=== PATIENT | female | born 1985 | race Caucasian/White ===

== ENCOUNTER → 2020-12-29 14:55 | Outpatient (BNVA) | payer OTHER, SELFPAY | PROVIDERS: PCP Internal Medicine; Visit Provider Internal Medicine Pulmonary Disease | DX: R91.8 Other nonspecific abnormal finding of lung field (principal) | CPT/HCPCS: 99212 ==

== ENCOUNTER → 2021-01-12 13:54 | Outpatient (BNVA) | payer OTHER, SELFPAY | PROVIDERS: PCP Internal Medicine; Visit Provider Nurse Practitioner ==

== ENCOUNTER 2021-01-14 13:53 | Outpatient (REF) | payer OTHER, SELFPAY ==
--- NOTE | ~2021-01-14 | CT_ITS ---
EXAMINATION: CT CHEST WITHOUT CONTRAST CLINICAL INFORMATION: Follow up pulmonary nodules. COMPARISON: CT chest 11/05/2019. TECHNIQUE: Multidetector volumetric CT imaging of the chest was done. Axial MIP volume rendering provided. Sagittal and coronal reformatted images were obtained. This CT examination was performed using dose optimization techniques as appropriate, variously including the following: *Automated exposure control *Adjustment of mA and/or kV according to patient size (this includes techniques or standardized protocols for targeted exams where dose is matched to indication/reason for exam; i.e. extremities or head) *Use of iterative reconstruction technique DLP: 217 mGy-cm FINDINGS: CLERICAL WAREHOUSEMAN: Unremarkable. LUNGS: The lungs are well expanded and clear of acute pneumonic process. There is a 5 mm cavitary thick-walled lesion in the left lower lobe subpleural location axial image 323/4, stable. No additional lesion seen. There is no bronchiectasis or peribronchial wall thickening. MEDIASTINUM: The thyroid lobes are symmetrical and normal. The central trachea and the bronchi are widely patent. Heart size and the great vessels are normal caliber. No abnormal-sized mediastinal lymph nodes or mass seen. There is no pericardial effusion. PLEURA: There is no pleural effusion. No pleural mass or thickening. AXILLA: There are small shotty axillary lymph nodes. The chest wall is unremarkable. Visualized liver, spleen, pancreas and bilateral adrenal glands are unremarkable. UPPER ABDOMEN: Visualized liver, spleen, pancreas and bilateral adrenal glands are unremarkable. OSSEOUS STRUCTURES: No bony abnormality seen. CT/CT chest wo con IMPRESSION: Stable 5 mm cavitary lesion left lower lobe. No new lesion seen. No abnormal mediastinal lymphadenopathy.
== END 2021-01-14 13:54 | disposition home or self-care (01) ==
LOC: HO.CT 13:53
PROVIDERS: PCP Internal Medicine; Visit Provider Internal Medicine Pulmonary Disease
DX: R91.8 Other nonspecific abnormal finding of lung field (principal)
CPT/HCPCS: 71250

== ENCOUNTER → 2021-01-21 14:57 | Outpatient (BNVA) | payer OTHER, SELFPAY | PROVIDERS: PCP Internal Medicine; Visit Provider Internal Medicine Pulmonary Disease | DX: G47.33 Obstructive sleep apnea (adult) (pediatric) (principal) | CPT/HCPCS: 99212 ==

== ENCOUNTER → 2021-01-28 09:21 | Outpatient (BNVA) | payer OTHER, SELFPAY | PROVIDERS: PCP Internal Medicine; Visit Provider Nurse Practitioner ==

== ENCOUNTER → 2021-02-11 12:39 | Outpatient (BNVA) | payer OTHER, SELFPAY | PROVIDERS: Visit Provider Nurse Practitioner ==

== ENCOUNTER 2021-04-05 11:12 | Outpatient (REF) | payer OTHER, SELFPAY | END 2021-04-05 11:13 | disposition home or self-care (01) | LOC: HO.LAB 11:12 | PROVIDERS: Visit Provider Nurse Practitioner Family | DX: N30.00 Acute cystitis without hematuria (principal) | CPT/HCPCS: 87086; 87088; 87186 ==

== ENCOUNTER → 2021-05-12 11:27 | Outpatient (BNVA) | payer OTHER, SELFPAY | PROVIDERS: PCP Internal Medicine; Visit Provider Anesthesiology | DX: M46.1 Sacroiliitis, not elsewhere classified (principal); M47.816 Spondylosis without myelopathy or radiculopathy, lumbar region; G89.4 Chronic pain syndrome | CPT/HCPCS: 99212 ==

== ENCOUNTER → 2021-07-06 10:47 | Outpatient (BNVA) | payer OTHER, MEDICAID, SELFPAY | PROVIDERS: PCP Internal Medicine; Visit Provider Obstetrics & Gynecology | DX: Z30.9 Encounter for contraceptive management, unspecified (principal) | CPT/HCPCS: 99212 ==

== ENCOUNTER → 2021-09-20 10:58 | Outpatient (BNVA) | payer OTHER, MEDICAID, SELFPAY | PROVIDERS: PCP Internal Medicine; Referring Provider Internal Medicine; Visit Provider Psychiatry & Neurology Neurology | DX: G47.10 Hypersomnia, unspecified (principal); G47.419 Narcolepsy without cataplexy | CPT/HCPCS: 99202 ==

== ENCOUNTER 2021-09-28 15:02 | Outpatient (REF) | payer OTHER, MEDICAID, SELFPAY ==
[2021-09-28 16:40] LABS: MANUAL DIFF FLAG NO
[2021-09-28 16:42] LABS: Basophils Percent Auto 0.4 % (0-2); Eosinophils Absolute Auto 0.1 X10*3/uL (0.0-0.4); Eosinophils Percent Auto 0.7 % (0-4); Hematocrit 38.7 % (37.0-47.0); Hemoglobin 12.7 g/dl (12.0-16.0); Imm Gran Abs Auto 0.02 X10*3/uL (0.00-0.03); Imm Gran Pct Auto 0.3 % (0.0-0.4); Lymphocytes Absolute Auto 2.2 X10*3/uL (1.2-4.9); Lymphocytes Percent Auto 31.3 % (20-40); Mean Corpuscular HGB Conc 32.8 g/dl (31.0-35.0); Mean Corpuscular Hemoglobin 27.5 pg (27.0-33.0); Mean Corpuscular Volume 83.9 fL (80.0-98.0); Mean Platelet Volume 10.4 fL (9.4-12.3); Monocytes Absolute Auto 0.4 X10*3/uL (0.1-1.2); Monocytes Percent Auto 5.2 % (2-11); Neutrophils Absolute Auto 4.4 x10*3/uL (2.0-8.3); Neutrophils Percent Auto 62.1 % (45-73); Platelet Count 334 X10*3/uL (160-400); Red Blood Count 4.61 X10*6/uL (4.20-5.50); Red Cell Distribution Width 12.5 % (11.0-16.0); White Blood Count 7.1 X10*3/uL (4.8-10.8)
[2021-09-28 17:28] LABS: Alanine Aminotransferase 26 U/L (0-31); Albumin Level 4.3 g/dL (3.5-5.0); Alkaline Phosphatase 66 U/L (39-117); Anion Gap 13 (12-20); Aspartate Amino Transferase 22 U/L (5-31); Bilirubin Total 0.4 mg/dL (0.0-1.0); Blood Urea Nitrogen 6 mg/dL (9-16); Calcium 9.3 mg/dL (8.4-10.2); Carbon Dioxide 30 mmol/L (22-29); Chloride 99 mmol/L (96-108); Estimated Glomerular Filt Rate > 60; Glucose Random 84 mg/dL (60-115); Sodium 138 mmol/L (135-145)
[2021-09-28 17:29] LABS: Amphetamine Screen Urine Not Detected (Not Detect); Barbiturates, Urine Not Detected (Not Detect); Benzodiazepines Screen Urine Not Detected (Not Detect); Cannabinoid Screen Urine Not Detected (Not Detect); Cocaine Screen Urine Not Detected (Not Detect); Fentanyl, urine Not Detected (Not Detect); Opiate Screen Urine Not Detected (Not Detect); Phencyclidine Screen Urine Not Detected (Not Detect)
[2021-09-28 17:49] LABS: TSH reflex Free T4 0.96 uIU/mL (0.32-4.0)
[2021-10-04 15:26] LABS: Vitamin D 25-OH, D2 4 ng/mL; Vitamin D 25-OH, D3 14 ng/mL; Vitamin D 25-OH, Total 18 ng/mL (30-100)
== END 2021-09-28 15:03 | disposition home or self-care (01) ==
LOC: HO.HMGCLDS 15:02
PROVIDERS: PCP Internal Medicine; Visit Provider Psychiatry & Neurology Neurology
DX: G47.10 Hypersomnia, unspecified (principal); G47.419 Narcolepsy without cataplexy
CPT/HCPCS: 80053; 80307; 82306; 84443; 85025

== ENCOUNTER → 2021-10-06 09:16 | Outpatient (BNVA) | payer OTHER, MEDICAID, SELFPAY | PROVIDERS: PCP Internal Medicine; Visit Provider Obstetrics & Gynecology | DX: Z01.419 Encounter for gynecological examination (general) (routine) without abnormal findings (principal); N91.2 Amenorrhea, unspecified | CPT/HCPCS: 99212 ==

== ENCOUNTER 2021-11-09 13:53 | Outpatient (REF) | payer OTHER, MEDICAID, SELFPAY ==
--- NOTE | ~2021-11-09 | US_ITS ---
EXAMINATION: US PELVIS TRANSVAGINAL CLINICAL INFORMATION: Amenorrhea COMPARISON: June 09, 2019 TECHNIQUE: Transcutaneous and transvaginal pelvic ultrasound. Transvaginal scanning was performed after voiding to better evaluate the endometrium and adnexa. FINDINGS: The uterus measures 8.4 x 3.4 x 5.3 cm. The uterus is anteverted. There are numerous nabothian cysts present The uterine contour is smooth. The endometrium measures 0.8 cm. No endometrial mass is identified. There is an 8 x 4 x 6 mm hypoechoic region within the myometrium of the anterior uterus most likely representing small fibroid. The right ovary measures approximately 3.3 x 2.2 x 3.1 cm. The calculated right ovarian volume is approximately 11.8 mL. There are numerous follicular cysts present. No suspicious masses seen. There is normal vascular flow present. The left ovary measures 2.7 x 1.2 x 2.6 cm. The calculated left ovarian volume is approximately 4.4 mL. No abnormal left adnexal findings. No significant free pelvic fluid. US/US pelvic and transvaginal IMPRESSION: Subcentimeter hypoechoic lesion within the myometrium likely representing a fibroid. Numerous nabothian cyst. Numerous right ovarian follicular cyst.
== END 2021-11-09 13:54 | disposition home or self-care (01) ==
LOC: HO.US 13:53
PROVIDERS: Visit Provider Obstetrics & Gynecology
DX: N91.2 Amenorrhea, unspecified (principal)
CPT/HCPCS: 76830; 76856

== ENCOUNTER 2021-11-16 13:52 | Outpatient (REF) | payer OTHER, MEDICAID, SELFPAY ==
[2021-11-16 17:06] LABS: HCG Quantitative < 2 mIU/mL; TSH reflex Free T4 0.68 uIU/mL (0.32-4.0)
[2021-11-17 21:37] LABS: Follicle Stimulating Hormone 3.9 mIU/mL; Lutenizing Hormone 4.4 mIU/mL; Prolactin 2.5 ng/mL
[2021-11-17 23:06] LABS: DHEA Sulfate 63 mcg/dL (23-266)
[2021-11-20 16:22] LABS: Testosterone, Free 0.8 pg/mL (0.1-6.4); Testosterone, Total 9 ng/dL (2-45)
== END 2021-11-16 13:53 | disposition home or self-care (01) ==
LOC: HO.HMGCLDS 13:52
PROVIDERS: PCP Internal Medicine; Visit Provider Obstetrics & Gynecology
DX: N91.2 Amenorrhea, unspecified (principal)
CPT/HCPCS: 36415; 82627; 83001; 83002; 83498; 84146; 84402; 84403; 84443; 84702

== ENCOUNTER → 2021-11-17 14:57 | Outpatient (BNVA) | payer OTHER, MEDICAID, SELFPAY | PROVIDERS: PCP Internal Medicine; Visit Provider Nurse Practitioner Family | DX: G47.10 Hypersomnia, unspecified (principal) | CPT/HCPCS: 99212 ==

== ENCOUNTER → 2021-11-28 14:45 | Outpatient (BNVA) | payer OTHER, MEDICAID, SELFPAY | PROVIDERS: Visit Provider Nurse Practitioner Family ==

== ENCOUNTER 2021-12-08 08:47 | Outpatient (REF) | payer OTHER, MEDICAID, SELFPAY | END 2021-12-08 08:48 | disposition home or self-care (01) | LOC: HO.LAB 08:47 | PROVIDERS: Visit Provider Obstetrics & Gynecology | DX: N91.2 Amenorrhea, unspecified (principal) | CPT/HCPCS: 58100; 88305 ==

== ENCOUNTER → 2021-12-22 11:45 | Outpatient (BNVA) | payer OTHER, MEDICAID, SELFPAY | PROVIDERS: Visit Provider Obstetrics & Gynecology ==

== ENCOUNTER 2022-01-06 15:10 | Emergency (ER) | payer OTHER, MEDICAID, SELFPAY ==
--- NOTE | ~2022-01-06 | XR_ITS ---
EXAMINATION: THORACIC, LUMBAR SPINE AND CHEST. CLINICAL INFORMATION: Fall. COMPARISON: Chest x-ray 04/14/2019. TECHNIQUE: Lumbar spine 3 views. Dorsal spine 2 views. Chest one view. FINDINGS: Dorsal spine: There is normal thoracic kyphosis. The vertebral heights, alignment and disc heights are normal. There is no visible acute fracture, dislocation or subluxation seen. No lytic or sclerotic process seen. The paravertebral soft tissues are normal. Lumbar spine: There is normal lumbar lordosis. The vertebral heights, alignment and disc heights are normal. No visible acute fracture, dislocation or lytic process seen. The paravertebral soft tissues are normal. There is moderate constipation. CHEST: The lungs are well-expanded and clear of acute process. The heart size and pulmonary vascularity is normal. No gross bony abnormality seen.. XR/XR lumbar spine 2-3V IMPRESSION: Unremarkable dorsal and lumbar spine exam. Unremarkable chest exam.
--- NOTE | ~2022-01-06 | XR_ITS ---
EXAMINATION: THORACIC, LUMBAR SPINE AND CHEST. CLINICAL INFORMATION: Fall. COMPARISON: Chest x-ray 04/14/2019. TECHNIQUE: Lumbar spine 3 views. Dorsal spine 2 views. Chest one view. FINDINGS: Dorsal spine: There is normal thoracic kyphosis. The vertebral heights, alignment and disc heights are normal. There is no visible acute fracture, dislocation or subluxation seen. No lytic or sclerotic process seen. The paravertebral soft tissues are normal. Lumbar spine: There is normal lumbar lordosis. The vertebral heights, alignment and disc heights are normal. No visible acute fracture, dislocation or lytic process seen. The paravertebral soft tissues are normal. There is moderate constipation. CHEST: The lungs are well-expanded and clear of acute process. The heart size and pulmonary vascularity is normal. No gross bony abnormality seen.. XR/XR chest 1V IMPRESSION: Unremarkable dorsal and lumbar spine exam. Unremarkable chest exam.
--- NOTE | ~2022-01-06 | XR_ITS ---
EXAMINATION: THORACIC, LUMBAR SPINE AND CHEST. CLINICAL INFORMATION: Fall. COMPARISON: Chest x-ray 04/14/2019. TECHNIQUE: Lumbar spine 3 views. Dorsal spine 2 views. Chest one view. FINDINGS: Dorsal spine: There is normal thoracic kyphosis. The vertebral heights, alignment and disc heights are normal. There is no visible acute fracture, dislocation or subluxation seen. No lytic or sclerotic process seen. The paravertebral soft tissues are normal. Lumbar spine: There is normal lumbar lordosis. The vertebral heights, alignment and disc heights are normal. No visible acute fracture, dislocation or lytic process seen. The paravertebral soft tissues are normal. There is moderate constipation. CHEST: The lungs are well-expanded and clear of acute process. The heart size and pulmonary vascularity is normal. No gross bony abnormality seen.. XR/XR thoracic spine 3V IMPRESSION: Unremarkable dorsal and lumbar spine exam. Unremarkable chest exam.
[2022-01-06 15:15] VITALS: BP 148/92; PULSE 92; RESP 16; TEMP 36.9; O2SAT 98; BMI 24.7
[2022-01-06] MEDS: oxyCODONE HCl Immed Release 5 MG TABLET PO (16:33)
--- NOTE | 2022-01-06 16:33 | ED.BACK ---
HPI - Back Pain/Injury General Chief Complaint: Back Pain/Injury Stated Complaint: fall,back pain Time Seen by Provider: 01/06/22 15:42 History of Present Illness HPI Narrative: Patient complains of both upper and lower back pain after slipping on the bottom 3 steps and hitting her back on to the edge of the steps this afternoon She denies any headache or head injury denies any neck pain she has no numbness weakness or tingling no radiation of the pain no extremity injuries Related Data Home Medications Medication Instructions Recorded Confirmed sertraline 100 mg tablet 150 mg PO DAILY tab 11/28/21 Previous Rx's Medication Instructions Recorded hyoscyamine sulfate 0.125 mg 0.125 mg PO BID 30 Days #60 tab 04/26/21 disintegrating tablet cholecalciferol (vitamin D3) 1,250 1,250 mcg PO QWEEK 98 Days #14 cap 10/28/21 mcg (50,000 unit) capsule modafinil 200 mg tablet (Provigil) See Rx Instructions PO DAILY #60 11/17/21 tab ondansetron 8 mg disintegrating 8 mg PO Q12H 30 Days #60 tab 12/09/21 tablet pregabalin 150 mg capsule 150 mg PO BID 30 Days #60 cap 12/12/21 methylphenidate HCl 10 mg biphasic 10 mg PO QAM #30 cap 01/03/22 50-50 capsule,extended release (Ritalin LA) lorazepam 0.5 mg tablet (Ativan) 0.5 mg PO TID PRN #7 tab 01/06/22 oxycodone 5 mg tablet 5 mg PO Q6H PRN #10 tab 01/06/22 Allergies Allergy/AdvReac Type Severity Reaction Status Date / Time No Known Allergies Allergy Verified 11/17/21 15:14 [No Known Allergies*] Review of Systems Review of Systems: Positive for back pain after fall Negatives are no dizziness no weakness no fainting no feeling faint no headache no confusion no neck pain no numbness weakness or tingling no chest pain no shortness of breath no abdominal pain no incontinence no dysuria no extremity pains no laceration Yes all other systems are reviewed and are negative PMFSH Past Medical History Source: nursing notes reviewed Medical History Anxiety and depression Arthropathy of lumbar facet joint ASCUS of cervix with negative high risk HPV Chronic pain syndrome Fibromyalgia Hemorrhoids Lumbar degenerative disc disease Overweight (BMI 25.0-29.9) Sacroiliitis Surgical History Hx of colonoscopy Family History Family History Maternal Grandfather Lung cancer Mother Aortic aneurysm Fibroids Maternal Grandmother Asthma Social History Social History Housing: Apartment Alcohol intake: never Patient Tobacco Use Status: Former Tobacco user Second Hand Smoke Exposure: Yes Advance Directives: No Advance Directives Information Provided: No Patient : No service: No Current occupational status: employed 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 Physical Exam Vital Signs: Vital Signs: Last Vital Signs Temp 98.4 F 01/06/22 15:15 Pulse 92 01/06/22 15:15 Resp 16 01/06/22 15:15 BP 148/92 H 01/06/22 15:15 Pulse Ox 98 01/06/22 15:15 BMI result Body Mass Index 24.7 General appearance no acute distress Head is normocephalic atraumatic Neck is supple nontender The chest is clear to auscultation bilateral with no chest wall tenderness no rib tenderness The abdomen is soft and nontender The back had both lower and thoracic tenderness including midline and soft tissues, there was no ecchymosis no deformity, skin was normal in appearance and pain was easily reproduced with movement Extremities was full range of motion x4 Gait and balance were normal Interaction both verbal expression and comprehension were normal, motor was 5/5 x4 and sensation was intact and symmetrical Course Course Course Narrative: X-rays were negative of lumbar spine thoracic spine and a chest x-ray was done as well because it hurt to take a deep breath She felt better after analgesics and was ambulating safely and easily and was discharged Discharge Plan Discharge Clinical Impression: Contusion of back, Back strain Patient Disposition: Home, Self-Care Additional Instructions: X-rays did not show any broken bones in your upper or lower back The pain is likely bruising and strain of muscles in the back Follow with your doctors Return any time any worse condition or any concerns Use Tylenol and Motrin for pain but if it is not sufficient you can use the oxycodone as needed Prescriptions: New oxycodone 5 mg tablet 5 mg PO Q6H PRN (Reason: pain) Qty: 10 0RF Rx Instructions: Narcotic, no driving for 6 hours after taking lorazepam [Ativan] 0.5 mg tablet 0.5 mg PO TID PRN (Reason: Back spasm) Qty: 7 0RF No Action hyoscyamine sulfate 0.125 mg tablet,disintegrating 0.125 mg PO BID 30 Days Qty: 60 0RF Hold Instructions: Doctor's Order cholecalciferol (vitamin D3) 1,250 mcg (50,000 unit) capsule 1,250 mcg PO QWEEK 98 Days Qty: 14 0RF ondansetron 8 mg tablet,disintegrating 8 mg PO Q12H 30 Days Qty: 60 3RF pregabalin 150 mg capsule 150 mg PO BID 30 Days Qty: 60 1RF methylphenidate HCl [Ritalin LA] 10 mg capsule,ER biphasic 50-50 10 mg PO QAM Qty: 30 0RF sertraline 100 mg tablet 150 mg PO DAILY 0RF modafinil [Provigil] 200 mg tablet See Rx Instructions PO DAILY Qty: 60 1RF Rx Instructions: 1 tab qam and 1 tab q noon
[2022-01-06] MEDS: LORazepam 1 MG TABLET PO (16:34)
[2022-01-06] MEDS: Ketorolac Tromethamine 30 MG/ML VIAL IM (16:34)
== END 2022-01-06 16:59 | disposition home or self-care (01) ==
PROVIDERS: Emergency Provider Emergency Medicine; PCP Internal Medicine
DX: S30.0XXA Contusion of lower back and pelvis, initial encounter (principal); S20.229A Contusion of unspecified back wall of thorax, initial encounter; S39.012A Strain of muscle, fascia and tendon of lower back, initial encounter; S29.012A Strain of muscle and tendon of back wall of thorax, initial encounter; W10.8XXA Fall (on) (from) other stairs and steps, initial encounter; Y93.89 Activity, other specified; Y92.9 Unspecified place or not applicable; Y99.9 Unspecified external cause status
CPT/HCPCS: 71045; 72072; 72100; 96372; 99283; 99284; J1885

== ENCOUNTER → 2022-01-12 10:54 | Outpatient (BNVA) | payer OTHER, SELFPAY | PROVIDERS: PCP Internal Medicine; Visit Provider Nurse Practitioner Family | DX: K58.2 Mixed irritable bowel syndrome (principal); R11.2 Nausea with vomiting, unspecified; R10.33 Periumbilical pain; G47.10 Hypersomnia, unspecified; M54.50 Low back pain, unspecified; Z79.899 Other long term (current) drug therapy | CPT/HCPCS: 99212 ==

== ENCOUNTER 2022-01-17 13:18 | Outpatient (REF) | payer OTHER, SELFPAY ==
[2022-01-17 16:29] LABS: MANUAL DIFF FLAG NO
[2022-01-17 16:34] LABS: Basophils Percent Auto 0.5 % (0-2); Eosinophils Absolute Auto 0.3 X10*3/uL (0.0-0.4); Eosinophils Percent Auto 4.6 % (0-4); Hematocrit 38.6 % (37.0-47.0); Hemoglobin 12.4 g/dl (12.0-16.0); Imm Gran Abs Auto 0.01 X10*3/uL (0.00-0.03); Imm Gran Pct Auto 0.2 % (0.0-0.4); Lymphocytes Absolute Auto 2.5 X10*3/uL (1.2-4.9); Lymphocytes Percent Auto 45.2 % (20-40); Mean Corpuscular HGB Conc 32.1 g/dl (31.0-35.0); Mean Corpuscular Hemoglobin 27.6 pg (27.0-33.0); Mean Corpuscular Volume 85.8 fL (80.0-98.0); Mean Platelet Volume 10.1 fL (9.4-12.3); Monocytes Absolute Auto 0.4 X10*3/uL (0.1-1.2); Monocytes Percent Auto 6.2 % (2-11); Neutrophils Absolute Auto 2.4 x10*3/uL (2.0-8.3); Neutrophils Percent Auto 43.3 % (45-73); Platelet Count 341 X10*3/uL (160-400); Red Cell Distribution Width 13.6 % (11.0-16.0); White Blood Count 5.6 X10*3/uL (4.8-10.8)
[2022-01-17 16:45] LABS: Alanine Aminotransferase 18 U/L (0-31); Albumin Level 4.4 g/dL (3.5-5.0); Alkaline Phosphatase 52 U/L (39-117); Anion Gap 13 (12-20); Aspartate Amino Transferase 17 U/L (5-31); Bilirubin Total 0.3 mg/dL (0.0-1.0); Blood Urea Nitrogen 13 mg/dL (9-16); C Reactive Protein 0.37 mg/dL (< or = 0.50); Calcium 10.2 mg/dL (8.4-10.2); Carbon Dioxide 28 mmol/L (22-29); Chloride 102 mmol/L (96-108); Estimated Glomerular Filt Rate > 60; Glucose Random 93 mg/dL (60-115); Potassium 4.4 mmol/L (3.3-5.1); Rheumatoid Factor < 15.0 IU/mL (<15.0); Sodium 139 mmol/L (135-145); Total Protein 7.3 g/dL (6.5-8.0)
[2022-01-17 16:47] LABS: Appearance Urine HAZY; Color Urine YELLOW; Glucose Urine UA NEG (NEG); Leukocyte Esterase Urine NEG (NEG); Nitrite Urine NEG (NEG); PH 5.5 (5.0-8.0); Specific Gravity - Urine >= 1.030 (1.005-1.025); UACC Culture Trigger NO; Urine Blood 1+ (NEG); Urine Ketones NEG (NEG); Urine Protein NEG (NEG-TRACE)
[2022-01-17 17:08] LABS: TSH reflex Free T4 1.04 uIU/mL (0.32-4.0)
[2022-01-17 17:11] LABS: Erythrocyte Sedimentation Rate 7 MM/HR (0-20)
[2022-01-17 17:17] LABS: Folate 4.8 ng/mL (> or = 4.0); Vitamin B12 1595 pg/mL (200-900)
[2022-01-17 17:44] LABS: RBC Urine 0-2 /HPF (0); Squamous Epithelial Cell Urine 2+ /LPF; WBC Urine 0-2 /HPF (0-4)
[2022-01-19 21:17] LABS: Transglutaminase Ab IgG <1.0 U/mL; Transglutaminase IgA <1.0 U/mL
[2022-01-20 14:56] LABS: Anti Nuclear Antibody Screen NEGATIVE (NEGATIVE)
== END 2022-01-17 13:19 | disposition home or self-care (01) ==
LOC: HO.HMGCLDS 13:18
PROVIDERS: Absent Provider Nurse Practitioner; PCP Internal Medicine; Visit Provider Internal Medicine
DX: R10.33 Periumbilical pain (principal); R11.2 Nausea with vomiting, unspecified; G89.4 Chronic pain syndrome; M79.7 Fibromyalgia; R53.83 Other fatigue; E53.8 Deficiency of other specified B group vitamins; K58.2 Mixed irritable bowel syndrome; M25.50 Pain in unspecified joint
CPT/HCPCS: 36415; 80053; 81001; 81003; 82607; 82746; 84443; 85025; 85652; 86003; 86038; 86039; 86140; 86364; 86431

== ENCOUNTER → 2022-02-17 11:52 | Outpatient (BNVA) | payer OTHER, SELFPAY | PROVIDERS: PCP Internal Medicine; Referring Provider Internal Medicine; Visit Provider Nurse Practitioner | DX: K58.2 Mixed irritable bowel syndrome (principal); K64.9 Unspecified hemorrhoids; K59.04 Chronic idiopathic constipation; R10.30 Lower abdominal pain, unspecified; R11.2 Nausea with vomiting, unspecified | CPT/HCPCS: 99212 ==

== ENCOUNTER → 2022-03-23 12:06 | Outpatient (BNVA) | payer OTHER, SELFPAY | PROVIDERS: PCP Internal Medicine; Visit Provider Nurse Practitioner | DX: K59.04 Chronic idiopathic constipation (principal); R10.33 Periumbilical pain; K58.2 Mixed irritable bowel syndrome | CPT/HCPCS: 99212 ==

== ENCOUNTER 2022-04-20 12:28 | Outpatient (REF) | payer OTHER, SELFPAY ==
--- NOTE | ~2022-04-20 | CT_ITS ---
EXAMINATION: CT ABDOMEN AND PELVIS WITHOUT CONTRAST CLINICAL INFORMATION: Mixed irritable bowel syndrome. COMPARISON: None. TECHNIQUE: Multidetector volumetric imaging was performed from the superior aspect of the liver through the pubic symphysis. Sagittal and coronal reformatted images were obtained on the technologist's workstation. This CT examination was performed using dose optimization techniques as appropriate, variously including the following: *Automated exposure control *Adjustment of mA and/or kV according to patient size (this includes techniques or standardized protocols for targeted exams where dose is matched to indication/reason for exam; i.e. extremities or head) *Use of iterative reconstruction technique DLP: 477 mGy-cm FINDINGS: LUNG BASES: The visualized lung bases are unremarkable. LIVER, GALLBLADDER, AND BILIARY TREE: The liver is normal in size, shape, and attenuation. No focal hepatic lesion or biliary ductal dilatation is present. The gallbladder is contracted with no radiopaque calculi, wall thickening or pericholecystic fluid collection. PANCREAS: Unremarkable. SPLEEN: Unremarkable. ADRENAL GLANDS: Unremarkable. KIDNEYS AND URETERS: The kidneys are normal in size, shape, and attenuation. No hydronephrosis, hydroureter, or calculi seen. No perinephric stranding. BLADDER: Unremarkable. GASTROINTESTINAL TRACT: There is a large amount of stool seen throughout the colon without distention. There is contrast opacifying normal caliber small bowel loops and colon. No free air, free fluid or inflammatory process is seen. ABDOMINAL WALL: No significant hernia is appreciated. LYMPH NODES: Normal. VASCULAR: Unremarkable. PELVIC VISCERA: There is no free air or free fluid. The uterus is anteverted and appears unremarkable. OSSEOUS STRUCTURES: Unremarkable. CT/CT abdomen pelvis wo con IMPRESSION: Significant constipation without obstruction. No mural thickening, abnormal lymph nodes. Fleischner guidelines were followed.
[2022-04-20] MEDS: Barium Sulfate Oral (Vanilla) 450 ML ORAL.SUSP 900 ML PO (14:46)
== END 2022-04-20 12:29 | disposition home or self-care (01) ==
LOC: HO.CT 12:28
PROVIDERS: Visit Provider Nurse Practitioner
DX: K58.2 Mixed irritable bowel syndrome (principal); R11.2 Nausea with vomiting, unspecified; R10.33 Periumbilical pain
CPT/HCPCS: 74176

== ENCOUNTER → 2022-05-04 12:40 | Outpatient (BNVA) | payer OTHER, SELFPAY | PROVIDERS: PCP Internal Medicine; Visit Provider Nurse Practitioner | DX: K59.04 Chronic idiopathic constipation (principal); R10.33 Periumbilical pain; Z79.899 Other long term (current) drug therapy | CPT/HCPCS: 99212 ==

== ENCOUNTER 2022-08-02 15:22 | Outpatient (REF) | payer OTHER, SELFPAY ==
[2022-08-08 16:26] LABS: Vitamin D 25-OH, D2 <4 ng/mL; Vitamin D 25-OH, D3 38 ng/mL; Vitamin D 25-OH, Total 38 ng/mL (30-100)
== END 2022-08-02 15:23 | disposition home or self-care (01) ==
LOC: HO.HMGCLDS 15:22
PROVIDERS: PCP Internal Medicine; Visit Provider Nurse Practitioner Family
DX: E55.9 Vitamin D deficiency, unspecified (principal)
CPT/HCPCS: 36415; 82306

== ENCOUNTER → 2022-09-13 11:08 | Outpatient (BNVA) | payer OTHER, SELFPAY | PROVIDERS: Visit Provider Obstetrics & Gynecology | DX: Z51.81 Encounter for therapeutic drug level monitoring (principal); F11.20 Opioid dependence, uncomplicated; E28.2 Polycystic ovarian syndrome | CPT/HCPCS: 99212 ==

== ENCOUNTER → 2022-10-04 13:47 | Outpatient (BNVA) | payer OTHER, SELFPAY | PROVIDERS: Visit Provider Nurse Practitioner Family | DX: G47.419 Narcolepsy without cataplexy (principal) ==

== ENCOUNTER 2023-02-01 15:42 | Outpatient (REF) | payer OTHER, SELFPAY ==
[2023-02-09 03:38] LABS: HPV 16 RNA NOT DETECTED (NOT DETECTED); HPV mRNA E6/E7 rflx Detected (Not Detected)
== END 2023-02-01 15:43 | disposition home or self-care (01) ==
LOC: HO.LNP 15:42
PROVIDERS: PCP Internal Medicine; Visit Provider Obstetrics & Gynecology
DX: Z01.419 Encounter for gynecological examination (general) (routine) without abnormal findings (principal); Z11.51 Encounter for screening for human papillomavirus (HPV)
CPT/HCPCS: 87624; 87625; 88142

== ENCOUNTER → 2023-02-09 08:57 | Outpatient (BNVA) | payer OTHER, SELFPAY | PROVIDERS: PCP Internal Medicine; Visit Provider Obstetrics & Gynecology | DX: Z30.42 Encounter for surveillance of injectable contraceptive (principal) | CPT/HCPCS: 96372; 99211 ==

== ENCOUNTER → 2023-03-30 10:57 | Outpatient (BNVA) | payer OTHER, SELFPAY | PROVIDERS: PCP Internal Medicine; Visit Provider Nurse Practitioner Family | DX: G47.419 Narcolepsy without cataplexy (principal); G47.10 Hypersomnia, unspecified; M79.7 Fibromyalgia; U07.0 Vaping-related disorder | CPT/HCPCS: 99212 ==

== ENCOUNTER 2023-10-23 14:44 | Outpatient (AMB) | payer OTHER, SELFPAY ==
--- NOTE | 2023-10-23 14:49 | A.OFFVIS_ITS ---
Intake Vital Signs 10/23/23 14:50 Height 5 ft 2 in Weight 158 lb BMI 28.9 BP 110/68 Blood Pressure Location Lt brachial Position Sitting Pulse 62 Pulse Source Pulse Oximeter Pulse Oximetry (%) 100 Oxygen Delivery Method Room Air Intake Visit Reasons: 6m f/u Follow [id number] to conf busy tone Allergies No Known Allergies [No Known Allergies*] Allergy (Verified 10/23/23 14:53) Medication List - Last Reconciled 10/23/23 by Alize Vargas CNP aripiprazole 5 mg PO DAILY bupropion HCl 150 mg PO DAILY bupropion HCl 300 mg PO DAILY cholecalciferol (vitamin D3) (Vitamin D3) 25 mcg PO DAILY 90 days dextroamphetamine-amphetamine 20 mg (Adderall) 30 mg (1.5 x 20 mg) PO DAILY 30 days dextroamphetamine-amphetamine 30 mg ER (Adderall XR) 30 mg PO QAM 30 days loratadine (Claritin) 10 mg PO DAILY PRN 90 days metformin 1,000 mg PO DAILY minocycline 100 mg PO BID ondansetron 8 mg PO Q12H PRN tretinoin 0.025% appl topical HPI HPI Comments History of Present Illness Details 38 y/o female patient presents for follo w up of narcolepsy and hypersomnia. Pt reports she sleeps better at night from 9 pm to 4:30 am. She stopped using lyrica. 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 She works 7 am-1 pm on weekdays, 9 am-1 pm on Weekends and 1 pm to 10 pm on Wednesdays. She does not have problem working those days, but struggles to stay awake on Sunday between 4-5 pm due to long evening schedule. It is difficulty for her to work until 4 pm and then to drive 30 min to go home. [facility] Medical History Vitamin D deficiency Migraine Narcolepsy ASCUS of cervix with negative high risk HPV Chronic pain syndrome Arthropathy of lumbar facet joint Sacroiliitis Hemorrhoids Overweight (BMI 25.0-29.9) Anxiety and depression Fibromyalgia Lumbar degenerative disc disease Surgical History History of excision of lesion (~11/02/18) History of esophagogastroduodenoscopy (EGD) Hx of colonoscopy Family History Maternal Grandfather Lung cancer Mother Aortic aneurysm Fibroids Maternal Grandmother Asthma Social History Housing: Apartment Alcohol intake: never Patient Tobacco Use Status: Former Tobacco user e-Cigarette/Vaping Use: Currently Using Second Hand Smoke Exposure: Yes service: No Current occupational status: employed 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 Cognitive needs: No Hearing needs: No Vision needs: Yes Female Reproductive History Menstrual Age of Menarche: 14 Review of Systems Const All systems reviewed & are unremarkable except as noted in HPI and below ENT Reports Normal hearing present Neuro Reports Normal hearing present Physical Exam Vital Signs: Last Vital Signs Pulse 62 10/23/23 14:50 BP 110/68 10/23/23 14:50 Pulse Ox 100 10/23/23 14:50 Oxygen Delivery Method Room Air 10/23/23 14:50 BMI result Body Mass Index 28.9 Const General: cooperative Nutritional Appearance: overweight Orientation/consciousness: patient oriented x3 Resp Effort & Inspection: normal respiratory effort and able to speak in complete sentences Neuro General: patient oriented x3, gait normal and moves all extremities Cranial nerves: Yes Bilaterally intact EOM present, Yes Normal facial strength present, Yes Midline tongue present, Yes Symmetric palate elevation present, Yes Normal hearing present, Yes Ability to bilaterally rotate head present and Yes Ability to bilaterally elevate shoulders present Cognition (Neuro): normal cognition Gait exam (Neuro): Normal gait present Motor exam (neuro): 5/5 motor strength present throughout and Pronator motor function not present Psych Appearance: grossly normal Mental Status: mental status grossly normal Speech and movement: Normal speech and movement present Affect: normal affect Assessment & Plan Assessment & Plan (1) Narcolepsy without cataplexy: Code(s): G47.419 - Narcolepsy without cataplexy (2) Hypersomnia: Code(s): G47.10 - Hypersomnia, unspecified Plan Continue to take Adderall XR 30 mg q 4:30 am. Advised patient to try Wakix 17.8 mg daily at 6-7 am. And then she can take Adderall 20 mg at 1-2 pm. Advised patient to have baseline EKG before start Wakix to monitor HR. Orders: Orders ECG 12 lead EKG Today G47.419 - Narcolepsy without cataplexy Medications: New pitolisant (Wakix) Start after finish 8.9 mg. 17.8 mg PO DAILY 23 days 23 tabs 0RF pitolisant (Wakix) 8.9 mg (2 x 4.45 mg) PO DAILY 7 days 14 tabs 0RF pitolisant (Wakix) Start after titrating up to 17.8 mg 17.8 mg PO DAILY 30 days 30 tabs 1RF Coding Level of Care Code Est Pt Level 4 (41271) Diagnoses Narcolepsy without cataplexy G47.419 Hypersomnia G47.10
[2023-10-23 14:50] VITALS: BP 110/68; PULSE 62; O2SAT 100; BMI 28.9
== END 2023-10-23 15:37 | disposition home or self-care (01) ==
PROVIDERS: PCP Internal Medicine; Visit Provider Nurse Practitioner Family
DX: G47.419 Narcolepsy without cataplexy (principal); G47.10 Hypersomnia, unspecified
CPT/HCPCS: 99214

== ENCOUNTER → 2023-10-23 14:44 | Outpatient (BNVA) | payer OTHER, SELFPAY | PROVIDERS: PCP Internal Medicine; Visit Provider Nurse Practitioner Family | DX: G47.419 Narcolepsy without cataplexy (principal); G47.10 Hypersomnia, unspecified | CPT/HCPCS: 99212 ==

== ENCOUNTER 2024-03-14 09:56 | Outpatient (AMB) | payer OTHER, SELFPAY ==
--- NOTE | 2024-03-14 09:57 | MHC.OFFVIS ---
Vital Signs 03/14/24 10:01 Height 5 ft 2 in Weight 150 lb BMI 27.4 BP 122/98 H Blood Pressure Location Rt brachial Position Sitting Pulse 106 H Pulse Source Pulse Oximeter Pulse Oximetry (%) 99 Oxygen Delivery Method Room Air Intake Visit Reasons: 2M follow up-LVM Intake Note: Patient presents for 2 month follow up. Patient feels tired all the time takes frequent naps. Allergies No Known Allergies [No Known Allergies*] Allergy (Verified 03/14/24 10:12) Medication List - Last Reconciled 03/14/24 by DARREN Franco aripiprazole 5 mg PO DAILY bupropion HCl XL 150 mg PO DAILY bupropion HCl XL 300 mg PO DAILY cholecalciferol (vitamin D3) (Vitamin D3) 25 mcg PO DAILY 90 days dextroamphetamine-amphetamine 30 mg ER (Adderall XR) 30 mg PO QAM 30 days loratadine (Claritin) 10 mg PO DAILY PRN 90 days metformin 1,000 mg PO DAILY minocycline 100 mg PO BID ondansetron 8 mg PO Q12H PRN solriamfetol (Sunosi) 150 mg PO DAILY 30 days tretinoin 0.025% appl topical HPI Comments Details: 38-yr-old female presents for f/u visit for narcolepsy tx. Pt denies any significant interval medical changes. Wakes up at 4:30am to arrive to work for 7am. 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 She takes the Sunosi 150mg and Bupropion XL 450mg, Aripiprazole 5mg between 4:30-5am. She finishes work at either 12pm or 4pm. On short work days- takes a nap if she can. Then takes the Adderall XR 30mg- as late as she can, as she struggles the most in the afternoon and evening. The Sunosi and Adderall do not last a full 8 hrs. With this regimen, she is still prone to sleep attacks when inactive. She is prone to head dropping forward at start of sleep attack. She has vivid dreams- often being chased by something. Sometimes wakes up stressed from the dream. Denies h/o sleep paralysis. Today, pt recalls, that prior to starting any narcolepsy medication- she did have an episode where when talking with her mother- her head slumped and she dropped her drink. [facility] Medical History Vitamin D deficiency Migraine Narcolepsy ASCUS of cervix with negative high risk HPV Chronic pain syndrome Arthropathy of lumbar facet joint Sacroiliitis Hemorrhoids Overweight (BMI 25.0-29.9) Anxiety and depression Fibromyalgia Lumbar degenerative disc disease Surgical History History of excision of lesion (~11/02/18) History of esophagogastroduodenoscopy (EGD) Hx of colonoscopy Family History Maternal Grandfather Lung cancer Mother Aortic aneurysm Fibroids Maternal Grandmother Asthma Social History Housing: Apartment Alcohol intake: never Patient Tobacco Use Status: Former Tobacco user e-Cigarette/Vaping Use: Currently Using Second Hand Smoke Exposure: Yes service: No Current occupational status: employed 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 Cognitive needs: No Hearing needs: No Vision needs: Yes Female Reproductive History Menstrual Age of Menarche: 14 Physical Exam Vital Signs: Last Vital Signs Pulse 106 H 03/14/24 10:01 BP 122/98 H 03/14/24 10:01 Pulse Ox 99 03/14/24 10:01 Oxygen Delivery Method Room Air 03/14/24 10:01 BMI result Body Mass Index 27.4 Const General: cooperative and no acute distress Orientation/consciousness: patient oriented x3 Resp Effort & Inspection: normal respiratory effort and able to speak in complete sentences Neuro General: patient oriented x3 Cranial nerves: Yes CN's II-XII intact bilaterally Cognition (Neuro): normal cognition Psych Appearance: grossly normal Mental Status: mental status grossly normal Speech and movement: Normal speech and movement present Affect: normal affect Attitude: cooperative Assessment & Plan Assessment & Plan (1) Narcolepsy without cataplexy: Comment: 2021- Positive MSLT w/ short sleep onet naps and 2 SOREMs. Possible cataplexy- ? episode w/ pt's mother of sudden weakness was ctaplexy. Code(s): G47.419 - Narcolepsy without cataplexy Category: Medical (2) Hypersomnia: Code(s): G47.10 - Hypersomnia, unspecified Category: Medical Plan Pt advised to start Lumryz 4.5 Gm qhs, as pt continues to have excessive daytime sleepiness, sleep attacks on Sunosi and Adderall. Reviewed instructions for use- including to not take it until she is actually in bed, to keep the medication in a locked box, to avoid taking Lumryz w/ alcohol or other sedating agents. Lumryz enrollment form signed by pt. In the meantime, continue: Sunosi 150mg qam. Adderall ER 30mg qd. May add Adderall 10mg IR tab- 102 tabs per day for breakthrough sleepiness/sleep attacks. Pt to monitor for episodes of sudden weakness- pt did not clearly understand what cataplexy s/s were when she previously denied having cataplexy s/s. Information shared on sleep and narcolepsy education resources. Follow-up 4 weeks after starting Lumryz- (appt maybe made on a sun at 4pm). Medications: New dextroamphetamine-amphetamine 10 mg (Adderall) administer doses at least 4-6 hours apart; Partial Fill upon patient request. 10 mg PO BID 30 days PRN 60 tabs 0RF sleep attack G47.419 - Narcolepsy without cataplexy Lumryz ER (sodium oxybate) 4.5 grams PO BEDTIME 30 days 30 ea 0RF narcolepsy NS G47.419 - Narcolepsy without cataplexy Coding Level of Care Code Est Pt Level 4 (33514) Diagnoses Narcolepsy without cataplexy G47.419 Hypersomnia G47.10
[2024-03-14 10:01] VITALS: BP 122/98; PULSE 106; O2SAT 99; BMI 27.4
== END 2024-03-14 11:55 | disposition home or self-care (01) ==
PROVIDERS: PCP Internal Medicine; Visit Provider Nurse Practitioner Family
DX: G47.419 Narcolepsy without cataplexy (principal); G47.10 Hypersomnia, unspecified
CPT/HCPCS: 99214

== ENCOUNTER → 2024-03-14 09:56 | Outpatient (BNVA) | payer OTHER, SELFPAY | PROVIDERS: PCP Internal Medicine; Visit Provider Nurse Practitioner Family | DX: G47.419 Narcolepsy without cataplexy (principal); G47.10 Hypersomnia, unspecified | CPT/HCPCS: 99212 ==

== ENCOUNTER 2024-03-21 12:44 | Outpatient (AMB) | payer OTHER, SELFPAY ==
[2024-03-21 12:54] VITALS: BP 122/70; PULSE 92; O2SAT 98; BMI 27.6
--- NOTE | 2024-03-21 12:54 | A.OFFPC_ITS ---
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: Not Required per policy Accompanied by: Self / Same As Patient Allergies No Known Allergies [No Known Allergies*] Allergy (Verified 03/21/24 13:31) Medication List - Last Reconciled 03/21/24 by Jackson Auguste MD aripiprazole 5 mg PO DAILY bupropion HCl XL 150 mg PO DAILY bupropion HCl XL 300 mg PO DAILY cholecalciferol (vitamin D3) (Vitamin D3) 25 mcg PO DAILY 90 days dextroamphetamine-amphetamine 10 mg (Adderall) 10 mg PO BID PRN 30 days dextroamphetamine-amphetamine 30 mg ER (Adderall XR) 30 mg PO QAM 30 days loratadine (Claritin) 10 mg PO DAILY PRN 90 days Lumryz ER (sodium oxybate) 4.5 grams PO BEDTIME 30 days NS metformin 1,000 mg PO DAILY minocycline 100 mg PO DAILY ondansetron 8 mg PO Q12H PRN solriamfetol (Sunosi) 150 mg PO DAILY 30 days spironolactone 50 mg PO BID tretinoin 0.025% appl topical Tobacco use date assessed: 03/21/24 Dental Screening Dental Screen Date: 03/21/24 Did you have a dental visit in the last 12 months?: Yes Did you have a dental problem in the last 6 months where you did not have access to dental care?: No Was dental information given to patient?: Patient has dentist HPI PE HPI Details Patient comes in today for her annual physical examination States that she feels okay She denies any headaches or dizziness Denies any chest pains, no SOB No nausea/vomiting, no abdominal pain No change in bowel habits noted She denies any acute urinary symptoms Patient is currently still on Sunosi and Adderall for her narcolepsy and this is being managed and treated by neurology She was supposedly recently switched to Lumryz as even with her current Rx, she still feels fatigued often and remains prone to sleep attacks, but patient states that this is still awaiting approval by her insurance company Patient states that she is up-to-date with her annual gynecology exam and pap smear [facility] Medical History (Updated 03/23/24 @ 21:57 by Jackson Auguste MD) Acne vulgaris Vitamin D deficiency Migraine Narcolepsy ASCUS of cervix with negative high risk HPV Chronic pain syndrome Arthropathy of lumbar facet joint Sacroiliitis Hemorrhoids Overweight (BMI 25.0-29.9) Anxiety and depression Fibromyalgia Lumbar degenerative disc disease Surgical History History of excision of lesion (~11/02/18) History of esophagogastroduodenoscopy (EGD) Hx of colonoscopy Family History Maternal Grandfather Lung cancer Mother Aortic aneurysm Fibroids Maternal Grandmother Asthma Social History Housing: Apartment Alcohol intake: never Patient Tobacco Use Status: Former Tobacco user e-Cigarette/Vaping Use: Currently Using Second Hand Smoke Exposure: Yes service: No Current occupational status: employed 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 1. Little interest or pleasure in doing things: several days 2. Feeling down, depressed, or hopeless: several days 3. Trouble falling or staying asleep, or sleeping too much: several days 4. Feeling tired or having little energy: several days 5. Poor appetite or overeating: several days 6. Feeling bad about yourself - or that you are a failure or have let yourself or your family down: several days 7. Trouble concentrating on things, such as reading the newspaper or watching television: several days 8. Moving or speaking so slowly that other people could have noticed. Or the opposite - being so fidgety or restless that you have been moving around a lot more than usual: several days 9. Thoughts that you would be better off or of hurting yourself in some way: not at all Total score: 8 Depression Screening Interpretation: Positive Depression Screening Follow-up: Existing condition and In treatment Depression Screening Done: Yes 24234 - PHQ-9 Billing: Yes Source: Developed by Drs. Walker Mccurdy, Miguel Sharma and colleagues, with an educational viktoriya from [employer]. Thrive Questionnaire Date Thrive assessed: 03/21/24 I am a: Patient What is your living situation today?: I have a steady place to live Within the past 12 months, did the food you bought not last and you didn't have the money to get more?: Never true Within the past 12 months, did you worry whether your food would run out before you got money to buy more?: Never true Do you have trouble paying for medicines?: No Do you have trouble getting transportation to medical appointments?: No Do you have trouble paying your heating and electricity bill?: No Do you have trouble taking care of your child, family member or friend?: No Do you have trouble with day-to-day activities such as bathing, preparing meals, shopping, managing finances, etc.?: No Are you currently unemployed and looking for a job?: No Are you interested in more education?: No Please select the resources that you would like help with: None Currently or been in a relationship where the following occur: no concerns reported THRIVE Score: 0 AUDIT C Alcohol Use Questionnaire (AUDIT-C) 1. How often do you have a drink containing alcohol?: Never 3. How often do you have six or more drinks on one occasion?: Never Total Score: 0 Score Reviewed/Action Taken: Yes KENYETTA-7 AMB Questionnaire KENYETTA-7 Date KENYETTA - 7 assessed: 03/21/24 Feeling nervous, anxious, or on edge: 0 = Not at all Not being able to stop or control worryin = Not at all Worrying too much about different things: 0 = Not at all Trouble relaxin = Not at all Being so restless that it is hard to sit still: 0 = Not at all Becoming easily annoyed or irritable: 0 = Not at all Feeling afraid as if something awful might happen: 0 = Not at all Total KENYETTA-7 score (0-4 normal; 5-9 mild; 10-14 moderate; 15-21 severe): 0 Source: Developed by Magdalene Rader Kurt Kroenke and colleagues, with an educational viktoriya from [employer]. Review of Systems Const Denies chills, Reports daytime sleepiness, Reports fatigue, Denies fever(s) and Denies headache(s) (better controlled lately) Eyes Denies blurry vision, Denies change in vision, Denies irritation and Denies itchy eyes ENT Denies dysphagia, Denies dizziness, Denies otalgia, Denies headache(s) (better controlled lately), Reports neck pain, Denies odynophagia and Denies sore throat Card Denies chest pain, Denies palpitations and Denies dyspnea Resp Denies cough, Denies dyspnea and Denies wheezing GI Denies abdominal pain, Reports constipation (intermittent), Denies dysphagia, Denies heartburn, Reports diarrhea (alternating with constipation), Denies nausea, Denies odynophagia and Denies vomiting Denies difficulty voiding, Denies nocturia, Denies dysuria and Denies urinary urgency Musc Reports back pain, Reports myalgias (diffuse), Reports arthralgias (multiple joints), Reports neck pain and Reports stiffness Skin/Breast Denies breast pain, Denies breast mass, Denies change in pigmentation, Denies lesions, Denies rash and Denies unusual bruising Neuro Denies dizziness and Denies headache(s) (better controlled lately) Psych Denies anxiety and Denies depression Endo Reports fatigue and Denies palpitations Dale/Lymph Denies easy bruising Aller/Immun Denies itchy eyes and Denies wheezing Physical exam (Primary Care) Vital Signs: Last Vital Signs Pulse 92 03/21/24 12:54 BP 122/70 03/21/24 12:54 Pulse Ox 98 03/21/24 12:54 Oxygen Delivery Method Room Air 03/21/24 12:54 BMI result Body Mass Index 27.6 Tobacco/Smoking Status: Tobacco use Status Tobacco use date assessed 03/21/24 03/21/24 12:56 Patient Tobacco Use Status Former Tobacco user 03/21/24 12:56 e-Cigarette/Vaping Use Currently Using 03/21/24 12:56 PHQ-9: PHQ-9 Score PHQ-9: Total score 8 03/21/24 13:37 Depression Screening Interpretation: Positive Depression Screening Follow-up: Existing condition and In treatment Thrive Assessment: Date of Thrive Assessment Date Thrive assessed 03/21/24 03/21/24 12:56 Currently or been in a relationship where the following occur: no concerns reported Const General: no acute distress, alert and awake Orientation/consciousness: patient oriented x3 HENMT Head: Yes normocephalic and Yes atraumatic Ears: external ears normal, TM's normal bilaterally and EAC's normal General nose exam: No nasal discharge present Face and sinus: Yes normal facial exam and Yes sinuses nontender Teeth and gingiva: dentition normal Throat: Yes posterior oropharynx normal and Yes tonsils normal (no TP congestion) Eyes Eyelids: Yes eyelids normal Conjunctivae: conjunctivae normal Pupils: Equal, round and reactive pupils present EOM: EOMs intact bilaterally Neck Neck: Yes no lymphadenopathy and Yes supple Thyroid: Thyroid normal Resp Auscultation: clear to auscultation bilaterally, no rales and no wheezes Cardio Rate: regular rate Rhythm: regular rhythm Heart sounds: no murmurs GI Palpation (GI): Soft to palpation, nontender and No hepatosplenomegaly present Auscultation: normal bowel sounds General: Yes no CVA tenderness Back/Spine/Pelvis Back: no CVA tenderness Cervical Spine: Cervical spine tenderness Thoracic/Lumbar Spine: lumbar spinal tenderness Skin Lesions: no lesions Rashes: no rashes Neuro General: patient oriented x3, moves all extremities, no focal motor deficits and CN's II-XI intact bilaterally Cranial nerves: Yes Equal, round and reactive pupils present Cognition (Neuro): normal cognition Gait exam (Neuro): Normal gait present Extrem General: Yes no clubbing, cyanosis or edema Results AMB Hemoglobin A1c AMB Hemoglobin A1c 4.8 % Last Edit by Toshia Kan CMA on 03/21/24 13 :13 Results Reviewed Results Reviewed: Laboratory Last Values Hgb A1c (Clinic) 4.8 % (4.0-6.0) 03/21/24 13:00 Assessment and Plan Assessment & Plan (1) Annual physical exam: Code(s): Z00.00 - Encounter for general adult medical examination without abnormal findings Plan: Check labs She is reportedly up-to-date with her annual gynecology exam and pap smear (2) Narcolepsy: Code(s): G47.419 - Narcolepsy without cataplexy Qualifiers: Narcolepsy type: primary without cataplexy Qualified Code(s): G47.419 - Narcolepsy without cataplexy Plan: Continue Adderall ER 30 mg Q AM and Adderall IR 10 mg BID PRN and Sunosi 150 mg QD She is reportedly being switched out from Sunosi to Lumryz ER 4.5 mg Q HS but states that this is still awaiting insurance approval Follow up with Sleep Medicine as scheduled (3) Migraine: Code(s): G43.909 - Migraine, unspecified, not intractable, without status migrainosus Qualifiers: Migraine type: unspecified Status migrainosus presence: without status migrainosus Intractability: not intractable Qualified Code(s): G43.909 - Migraine, unspecified, not intractable, without status migrainosus Plan: Reinforced again avoidance of migraine triggers Continue Sumatriptan 50 mg PRN as instructed Follow up with neurology as scheduled (4) Lumbar degenerative disc disease: Code(s): M51.36 - Other intervertebral disc degeneration, lumbar region Plan: Reinforced activity and weight-lifting restrictions She has been seen by [facility] in the past and has received right L3-L5 medial branch blocks back in August 2020; was also seen by pain management in [place] with Dr. Grant Root but was reportedly fired from her last pain management provider/practice and was tapered off her Hydrocodone She was also apparently suspended by Dr. Torres a few years ago from pain management for improper pill count (Buprenorphine) She was subsequently seen by Dr. Blanco back in late April 2021 and at the time, was going to be started on a compounding cream and scheduled for SI joint injections but she has not been back to see Dr. Blanco since She used to take Meloxicam 15 mg QD with food PRN for pain and Lyrica 150 mg BID but has not been on these for a while now (5) Fibromyalgia: Code(s): M79.7 - Fibromyalgia Plan: Encouraged again on regular exercise and physical activity to help manage her fibromyalgia symptoms She used to take Lyrica but has not been on this in a while now (6) Irritable bowel syndrome with both constipation and diarrhea: Code(s): K58.2 - Mixed irritable bowel syndrome Plan: Continue Amitiza 24 mcg BID and Ondansetron 8 mg q 12 hours Follow up with GI as scheduled (7) PCOS (polycystic ovarian syndrome): Code(s): E28.2 - Polycystic ovarian syndrome Plan: Continue Spironolactone 50 mg BID and Metformin 1000 mg QD Follow up with OB-Career Technical Supervisor as scheduled (8) Acne vulgaris: Code(s): L70.0 - Acne vulgaris Plan: Continue Minocycline 100 mg QD, Spironolactone 50 mg BID and Tretinoin 0.025% Q HS Follow up with dermatology (Dr. Cramer) as scheduled (9) Vitamin D deficiency: Code(s): E55.9 - Vitamin D deficiency, unspecified Plan: Continue Vitamin D3 1000 units QD (10) Anxiety and depression: Code(s): F41.9 - Anxiety disorder, unspecified; F32.9 - Major depressive disorder, single episode, unspecified Plan: Continue Aripiprazole 5 mg Q HS and Bupropion XL 450 mg QD Follow up with psychiatry (Dr. Brito at [facility]) as scheduled (11) Overweight (BMI 25.0-29.9): Code(s): E66.3 - Overweight Plan: Reinforced diet/exercise as tolerated/ lose weight Plan Follow up in 6 months Orders: Orders AMB Hemoglobin A1c 03/21/24 Z13.9 - Encounter for screening, unspecified Comprehensive Morton. Panel Fast 03/21/24 E78.00 - Pure hypercholesterolemia, unspecified, Z00.00 - Encounter for general adult medical examination without abnormal findings UA CC w/rflx Micro + Cult 03/21/24 R30.0 - Dysuria, Z00.00 - Encounter for general adult medical examination without abnormal findings Vitamin D 25-OH Total 03/21/24 E55.9 - Vitamin D deficiency, unspecified, Z00.00 - Encounter for general adult medical examination without abnormal findings Complete Blood Count Auto Diff 03/21/24 D64.9 - Anemia, unspecified, Z00.00 - Encounter for general adult medical examination without abnormal findings Lipid Panel 03/21/24 E78.00 - Pure hypercholesterolemia, unspecified, Z00.00 - Encounter for general adult medical examination without abnormal findings TSH reflex Free T4 03/21/24 E78.00 - Pure hypercholesterolemia, unspecified, Z00.00 - Encounter for general adult medical examination without abnormal findings Coding Level of Care Code Est Pt Prev Care [id number]([id number]) Diagnoses Annual physical exam Z00.00 Primary narcolepsy without cataplexy G47.419 Narcolepsy type: primary without cataplexy Migraine without status migrainosus, not intractable, unspecified migraine type G43.909 Migraine type: unspecified Status migrainosus presence: without status migrainosus Intractability: not intractable Lumbar degenerative disc disease M51.36 Fibromyalgia M79.7 Irritable bowel syndrome with both constipation and diarrhea K58.2 PCOS (polycystic ovarian syndrome) E28.2 Acne vulgaris L70.0 Vitamin D deficiency E55.9 Anxiety and depression F41.9; F32.9 Overweight (BMI 25.0-29.9) E66.3
== END 2024-03-21 13:52 | disposition home or self-care (01) ==
PROVIDERS: PCP Internal Medicine; Visit Provider Internal Medicine
DX: Z13.9 Encounter for screening, unspecified (principal)
CPT/HCPCS: 83036; 99395

== ENCOUNTER 2024-05-30 07:38 | Outpatient (AMB) | payer OTHER, SELFPAY ==
--- NOTE | 2024-05-30 07:38 | A.OFFVIS_ITS ---
Intake Visit Reasons: Follow up-KH request-LVM Intake Note: Patient presents for follow up Allergies No Known Allergies [No Known Allergies*] Allergy (Verified 05/30/24 07:38) HPI Comments Details: 39-yr-old female presents for f/u televideo visit via [facility] for narcolepsy Pt denies any significant interval medical changes. Pt states she recently started Lumryz 4.5 gm qhs. Notes it took her a while to start it as she needed time to think about starting it. She does take it while in bed as directed- and does notice that it makes her a bit dizzy/uncoordinated. It also was causing some nausea, but taking a bit of food before taking it has helped. She has noticed much difference in her daytime wakefulness and energy level- as she is still waking up 4-5 times a night. She is still having daytime sleepiness. She has been thinking about moving back to [place]- but has not decided officially yet. [facility] Medical History (Updated 06/01/24 @ 15:48 by DARREN Franco) VASILE (obstructive sleep apnea) Acne vulgaris Vitamin D deficiency Migraine Narcolepsy ASCUS of cervix with negative high risk HPV Chronic pain syndrome Arthropathy of lumbar facet joint Sacroiliitis Hemorrhoids Overweight (BMI 25.0-29.9) Anxiety and depression Fibromyalgia Lumbar degenerative disc disease Surgical History History of excision of lesion (~11/02/18) History of esophagogastroduodenoscopy (EGD) Hx of colonoscopy Family History Maternal Grandfather Lung cancer Mother Aortic aneurysm Fibroids Maternal Grandmother Asthma Social History Housing: Apartment Alcohol intake: never Patient Tobacco Use Status: Former Tobacco user e-Cigarette/Vaping Use: Currently Using Second Hand Smoke Exposure: Yes service: No Current occupational status: employed 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 Cognitive needs: No Hearing needs: No Vision needs: Yes Female Reproductive History Menstrual Age of Menarche: 14 Physical Exam Const General: cooperative and no acute distress Orientation/consciousness: patient oriented x3 Resp Effort & Inspection: normal respiratory effort and able to speak in complete sentences Neuro General: patient oriented x3 Cognition (Neuro): normal cognition Psych Appearance: grossly normal Mental Status: mental status grossly normal Speech and movement: Normal speech and movement present Affect: normal affect Attitude: cooperative Telehealth Telehealth Telehealth Platform: [facility] Location of provider rendering services: practice address Location of patient: address on file Patient Identification confirmed using: Name, : Yes Telehealth method: video Patient verbally consented to treatment: Yes Patient verbally consented to billing insurance company: Yes Patient informed of any privacy concerns related to visit: Yes Minutes spent on Phone/Video with Pt.: 23 Assessment & Plan Assessment & Plan (1) Narcolepsy without cataplexy: Comment: 2021- Positive MSLT w/ short sleep onet naps and 2 SOREMs. Possible cataplexy- ? episode w/ pt's mother of sudden weakness was ctaplexy. Code(s): G47.419 - Narcolepsy without cataplexy Category: Medical (2) Hypersomnia: Code(s): G47.10 - Hypersomnia, unspecified Category: Medical (3) Periodic limb movements of sleep: Code(s): G47.61 - Periodic limb movement disorder Category: Medical Plan Pt advised to continue Lumryz 4.5 Gm qhs for now. If she is tolertaing it better, then will increase dose to 6 Gm qhs. Reviewed instructions for use- including to not take it until she is actually in bed, to keep the medication in a locked box, to avoid taking Lumryz w/ alcohol or other sedating agents. In the meantime, also continue: Sunosi 150mg qam. Adderall ER 30mg qd. Adderall 10mg IR tab- 1-2 tabs per day for breakthrough sleepiness/sleep attacks. ? Pt to monitor for episodes of sudden weakness- pt did not clearly understand what cataplexy s/s were when she previously denied having cataplexy s/s. Monitor PLMS seen on MSLT in 2021. ? ? We will check in w/ pt in 3-4 weeks and plan for f/u appt in 3 months. Medications: Refilled dextroamphetamine-amphetamine 10 mg (Adderall) administer doses at least 4-6 hours apart; Partial Fill upon patient request. 10 mg PO BID PRN 60 tabs 0RF sleep attack 30 days G47.419 - Narcolepsy without cataplexy dextroamphetamine-amphetamine 30 mg ER (Adderall XR) Adderall Brand-name only. 30 mg PO QAM 30 days 30 caps 0RF dextroamphetamine-amphetamine 30 mg ER (Adderall XR) Adderall Brand-name only. 30 mg PO QAM 30 caps 0RF 30 days Coding Level of Care Code Tele Est Pt Level 4 (06203) Diagnoses Narcolepsy without cataplexy G47.419 Hypersomnia G47.10 Periodic limb movements of sleep G47.61
== END 2024-05-30 08:35 | disposition home or self-care (01) ==
LOC: HO.HSMS 07:38
PROVIDERS: PCP Internal Medicine; Visit Provider Nurse Practitioner Family
DX: G47.419 Narcolepsy without cataplexy (principal); G47.10 Hypersomnia, unspecified; G47.61 Periodic limb movement disorder
CPT/HCPCS: 99214

== ENCOUNTER → 2024-05-30 07:38 | Outpatient (BNVA) | payer OTHER, SELFPAY | PROVIDERS: PCP Internal Medicine; Visit Provider Nurse Practitioner Family ==

== ENCOUNTER 2024-09-26 10:40 | Outpatient (AMB) | payer OTHER, SELFPAY ==
[2024-09-26 10:44] VITALS: BP 100/80; PULSE 104; O2SAT 99; BMI 29.5
--- NOTE | 2024-09-26 10:44 | A.OFFPC_ITS ---
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 Accompanied by: Self / Same As Patient Allergies No Known Allergies [No Known Allergies*] Allergy (Verified 09/26/24 11:01) Medication List - Last Reconciled 09/26/24 by Jackson Auguste MD aripiprazole 5 mg PO DAILY 90 days bupropion HCl XL 150 mg PO DAILY 90 days bupropion HCl XL 300 mg PO DAILY 90 days cholecalciferol (vitamin D3) (Vitamin D3) 25 mcg PO DAILY 90 days dextroamphetamine-amphetamine 20 mg ER (Adderall XR) 20 mg PO DAILY 30 days dextroamphetamine-amphetamine 30 mg ER (Adderall XR) 30 mg PO QAM 30 days loratadine (Claritin) 10 mg PO DAILY PRN 90 days metformin 1,000 mg PO DAILY minocycline 100 mg PO DAILY ondansetron 8 mg PO Q12H PRN sodium oxybate ER (Lumryz) 6 grams PO BEDTIME 30 days solriamfetol (Sunosi) 150 mg PO DAILY 30 days spironolactone 50 mg PO BID tretinoin 0.025% appl topical Tobacco use date assessed: 09/26/24 Dental Screening Dental Screen Date: 09/26/24 Did you have a dental visit in the last 12 months?: No Did you have a dental problem in the last 6 months where you did not have access to dental care?: No Was dental information given to patient?: Patient has dentist HPI 6 Month F/U HPI Details Patient comes in today for her follow up visit States that she feels okay She denies any headaches or dizziness Denies any chest pains, no SOB No nausea/vomiting, no abdominal pain No change in bowel habits noted She continues to experience recurrent low back pain and wants to know if Tylenol or Ibuprofen would be okay for her to take States that she used to take Pregabalin but does not want to continue on them due to concerns that they may interact with some of the other meds she is taking for her ADHD and narcolepsy She was not able to get her previously ordered labs done yet - states that she lost the papers we gave her last time (she plans to go to the [facility] on [facility] in [place]) and needs them reprinted for her [facility] Medical History VASILE (obstructive sleep apnea) Acne vulgaris Vitamin D deficiency Migraine Narcolepsy ASCUS of cervix with negative high risk HPV Chronic pain syndrome Arthropathy of lumbar facet joint Sacroiliitis Hemorrhoids Overweight (BMI 25.0-29.9) Anxiety and depression Fibromyalgia Lumbar degenerative disc disease Surgical History History of excision of lesion (~11/02/18) History of esophagogastroduodenoscopy (EGD) Hx of colonoscopy Family History Maternal Grandfather Lung cancer Mother Aortic aneurysm Fibroids Maternal Grandmother Asthma Social History Housing: Apartment Alcohol intake: never Patient Tobacco Use Status: Former Tobacco user e-Cigarette/Vaping Use: Currently Using Second Hand Smoke Exposure: Yes service: No Current occupational status: employed 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 1. Little interest or pleasure in doing things: several days 2. Feeling down, depressed, or hopeless: several days 3. Trouble falling or staying asleep, or sleeping too much: several days 4. Feeling tired or having little energy: several days 5. Poor appetite or overeating: several days 6. Feeling bad about yourself - or that you are a failure or have let yourself or your family down: several days 7. Trouble concentrating on things, such as reading the newspaper or watching television: several days 8. Moving or speaking so slowly that other people could have noticed. Or the opposite - being so fidgety or restless that you have been moving around a lot more than usual: several days 9. Thoughts that you would be better off or of hurting yourself in some way: not at all Total score: 8 Depression Screening Interpretation: Positive Depression Screening Follow-up: Existing condition and In treatment Depression Screening Done: Yes 65687 - PHQ-9 Billing: Yes Source: Developed by Drs. Walker Mccurdy, Magdalene Phipps, Miguel Armstrong and colleagues, with an educational viktoriya from [employer]. Thrive Questionnaire Date Thrive assessed: 09/26/24 I am a: Patient What is your living situation today?: I have a steady place to live Within the past 12 months, did the food you bought not last and you didn't have the money to get more?: Never true Within the past 12 months, did you worry whether your food would run out before you got money to buy more?: Never true Do you have trouble paying for medicines?: No Do you have trouble getting transportation to medical appointments?: No Do you have trouble paying your heating and electricity bill?: No Do you have trouble taking care of your child, family member or friend?: No Do you have trouble with day-to-day activities such as bathing, preparing meals, shopping, managing finances, etc.?: No Are you currently unemployed and looking for a job?: No Are you interested in more education?: No Please select the resources that you would like help with: None Currently or been in a relationship where the following occur: No concerns reported THRIVE Score: 0 AUDIT C Alcohol Use Questionnaire (AUDIT-C) 1. How often do you have a drink containing alcohol?: Monthly or less 2. How many drinks containing alcohol do you have on a typical day when you are drinking?: 3 or 4 3. How often do you have six or more drinks on one occasion?: Less than monthly Total Score: 3 Score Reviewed/Action Taken: Yes KENYETTA-7 AMB Questionnaire KENYETTA-7 Date KENYETTA - 7 assessed: 09/26/24 Feeling nervous, anxious, or on edge: 0 = Not at all Not being able to stop or control worryin = Not at all Worrying too much about different things: 0 = Not at all Trouble relaxin = Not at all Being so restless that it is hard to sit still: 0 = Not at all Becoming easily annoyed or irritable: 0 = Not at all Feeling afraid as if something awful might happen: 0 = Not at all Total KENYETTA-7 score (0-4 normal; 5-9 mild; 10-14 moderate; 15-21 severe): 0 Source: Developed by Drs. Walker Mccurdy, Magdalene Phipps, Miguel Armstrong and colleagues, with an educational viktoriya from [employer]. Review of Systems Const Denies chills, Reports daytime sleepiness (has narcolepsy), Reports fatigue, Denies fever(s) and Denies headache(s) (better controlled lately) ENT Denies dysphagia, Denies dizziness, Denies otalgia, Denies headache(s) (better controlled lately), Reports neck pain, Denies odynophagia and Denies sore throat Card Denies chest pain, Denies palpitations and Denies dyspnea Resp Denies cough, Denies dyspnea and Denies wheezing GI Denies abdominal pain, Reports constipation (intermittent), Denies dysphagia, Denies heartburn, Reports diarrhea (alternating with constipation), Denies nausea, Denies odynophagia and Denies vomiting Denies difficulty voiding, Denies nocturia, Denies dysuria and Denies urinary urgency Musc Reports back pain, Reports myalgias (diffuse), Reports arthralgias (multiple joints), Reports neck pain and Reports stiffness Skin/Breast Denies rash Neuro Denies dizziness and Denies headache(s) (better controlled lately) Psych Denies anxiety and Denies depression Endo Reports fatigue and Denies palpitations Dale/Lymph Denies easy bruising Aller/Immun Denies wheezing Physical exam (Primary Care) Vital Signs: Last Vital Signs Pulse 104 H 09/26/24 10:44 BP 100/80 09/26/24 10:44 Pulse Ox 99 09/26/24 10:44 Oxygen Delivery Method Room Air 09/26/24 10:44 BMI result Body Mass Index 29.5 Tobacco/Smoking Status: Tobacco use Status Tobacco use date assessed 09/26/24 09/26/24 10:48 Patient Tobacco Use Status Former Tobacco user 09/26/24 10:48 e-Cigarette/Vaping Use Currently Using 09/26/24 10:48 PHQ-9: PHQ-9 Score PHQ-9: Total score 8 09/26/24 10:48 Depression Screening Interpretation: Positive Depression Screening Follow-up: Existing condition and In treatment Thrive Assessment: Date of Thrive Assessment Date Thrive assessed 09/26/24 09/26/24 10:48 Currently or been in a relationship where the following occur: No concerns reported Const General: no acute distress and alert HENMT Ears: TM's normal bilaterally and EAC's normal Throat: Yes posterior oropharynx normal and Yes tonsils normal (no TP conges tion) Neck Neck: Yes supple and No lymphadenopathy Thyroid: Thyroid normal Resp Auscultation: clear to auscultation bilaterally, no rales and no wheezes Cardio Rate: regular rate Rhythm: regular rhythm Heart sounds: no murmurs GI Palpation (GI): Soft to palpation and nontender Auscultation: normal bowel sounds General: Yes no CVA tenderness Back/Spine/Pelvis Back: no CVA tenderness Cervical Spine: Cervical spine tenderness Thoracic/Lumbar Spine: lumbar spinal tenderness Skin Rashes: no rashes Extrem General: Yes no clubbing, cyanosis or edema Coding Level of Care Code Est Pt Level 4 (50721) Diagnoses Narcolepsy without cataplexy G47.419 Periodic limb movements of sleep G47.61 Migraine without status migrainosus, not intractable, unspecified migraine type G43.909 Migraine type: unspecified Status migrainosus presence: without status migrainosus Intractability: not intractable Degeneration of intervertebral disc of lumbar region with discogenic back pain M51.360 Disc-related pain type: discogenic back pain only Fibromyalgia M79.7 Irritable bowel syndrome with both constipation and diarrhea K58.2 PCOS (polycystic ovarian syndrome) E28.2 Acne vulgaris L70.0 Vitamin D deficiency E55.9 Anxiety and depression F41.9; F32.9 Overweight (BMI 25.0-29.9) E66.3 Additional Codes PHQ-9 - 61998 - PHQ-9 Billing: Yes ([id number]) Assessment & Plan Assessment & Plan (1) Narcolepsy without cataplexy: Comment: 2021- Positive MSLT w/ short sleep onet naps and 2 SOREMs. Possible cataplexy- ? episode w/ pt's mother of sudden weakness was ctaplexy. Code(s): G47.419 - Narcolepsy without cataplexy Category: Medical Plan: Continue Adderall ER 30 mg Q AM and Adderall ER 20 mg QD at noon or early afternoon; Adderall IR was discontinued Continue Sunosi 150 mg QD She is currently also on Lumryz ER 6 mg Q HS reportedly being switched out from Sunosi to Lumryz ER 4.5 mg Q HS but states that this is still awaiting insurance approval Follow up with Sleep Medicine as scheduled (2) Periodic limb movements of sleep: Code(s): G47.61 - Periodic limb movement disorder Category: Medical Plan: There were apparently an increased number of periodic limb movements seen on his polysomnography done back in 05/2022 that may be sufficient in frequency to result in symptomatic sleep fragmentation States that neurology now has her on Lumryz ER to see if this will help with her PLMs Follow up with neurology as scheduled (3) Migraine: Code(s): G43.909 - Migraine, unspecified, not intractable, without status migrainosus Category: Medical Qualifiers: Migraine type: unspecified Status migrainosus presence: without status migrainosus Intractability: not intractable Qualified Code(s): G43.909 - Migraine, unspecified, not intractable, without status migrainosus Plan: Reinforced again avoidance of migraine triggers Continue Sumatriptan 50 mg PRN as instructed Follow up with neurology as scheduled (4) Lumbar degenerative disc disease: Code(s): M51.36 - Other intervertebral disc degeneration, lumbar region Category: Medical Qualifiers: Disc-related pain type: discogenic back pain only Qualified Code(s): M51.360 - Other intervertebral disc degeneration, lumbar region with discogenic back pain only Plan: Reinforced activity and weight-lifting restrictions She has been seen by [facility] in the past and has received right L3-L5 medial branch blocks back in August 2020 She was also seen by pain management in [place] with Dr. Grant Root but was reportedly fired from her last pain management provider/practice and was tapered off her Hydrocodone She was also apparently suspended by Dr. Torres a few years ago from pain management for improper pill count (Buprenorphine) She was subsequently seen by Dr. Blanco back in late April 2021 and at the time, was going to be started on a compounding cream and scheduled for SI joint injections but she has not been back to see Dr. Blanco since She used to take Meloxicam 15 mg QD with food PRN for pain and Lyrica 150 mg BID but has not been on these for a while now as she is concerned about potential interactions of these (especially Lyrica) with her current Rx for narcolepsy and PLMD Have advised her that Tylenol (Acetaminophen) should be safe for her to take (no more than 2000 mg total daily dose) and she can also try the OTC topical pain creams or patches like Bengay, Aspercreme or Salonpas for symptomatic relief (5) Fibromyalgia: Code(s): M79.7 - Fibromyalgia Category: Medical Plan: She is encouraged again on regular exercise and physical activity to help manage her fibromyalgia symptoms She used to take Lyrica but has not been on this in a while now (6) Irritable bowel syndrome with both constipation and diarrhea: Code(s): K58.2 - Mixed irritable bowel syndrome Category: Medical Plan: Continue Amitiza 24 mcg BID and Ondansetron 8 mg q 12 hours Follow up with GI as scheduled She is instructed to try getting her previously ordered labs done CATHY - orders are updated and printed out and handed to patient today (7) PCOS (polycystic ovarian syndrome): Code(s): E28.2 - Polycystic ovarian syndrome Category: Medical Plan: Continue Spironolactone 50 mg BID and Metformin 1000 mg QD Follow up with gynecology as scheduled (8) Acne vulgaris: Code(s): L70.0 - Acne vulgaris Category: Medical Plan: Continue Minocycline 100 mg QD, Spironolactone 50 mg BID and Tretinoin 0.025% Q HS Follow up with dermatology (Dr. Cramer) as scheduled (9) Vitamin D deficiency: Code(s): E55.9 - Vitamin D deficiency, unspecified Category: Medical Plan: Continue Vitamin D3 1000 units QD (10) Anxiety and depression: Code(s): F41.9 - Anxiety disorder, unspecified; F32.9 - Major depressive disorder, single episode, unspecified Category: Medical Plan: Continue Aripiprazole 5 mg Q HS and Bupropion XL 450 mg QD Follow up with psychiatry (Dr. Brito at [facility]) as scheduled (11) Overweight (BMI 25.0-29.9): Code(s): E66.3 - Overweight Category: Medical Plan: Reinforced diet/exercise as tolerated/ lose weight Plan To return in 6 months for her next annual physical examination
== END 2024-09-26 11:14 | disposition home or self-care (01) ==
PROVIDERS: PCP Internal Medicine; Visit Provider Internal Medicine
DX: G47.419 Narcolepsy without cataplexy (principal); G47.61 Periodic limb movement disorder; G43.909 Migraine, unspecified, not intractable, without status migrainosus; M51.360 Other intervertebral disc degeneration, lumbar region with discogenic back pain only; M79.7 Fibromyalgia; K58.2 Mixed irritable bowel syndrome; E28.2 Polycystic ovarian syndrome; L70.0 Acne vulgaris; E55.9 Vitamin D deficiency, unspecified; F41.9 Anxiety disorder, unspecified; F32.9 Major depressive disorder, single episode, unspecified; E66.3 Overweight

== ENCOUNTER → 2024-09-26 10:40 | Outpatient (BNVA) | payer OTHER, SELFPAY | PROVIDERS: PCP Internal Medicine; Visit Provider Internal Medicine | DX: M51.360 Other intervertebral disc degeneration, lumbar region with discogenic back pain only (principal); F90.9 Attention-deficit hyperactivity disorder, unspecified type; G47.419 Narcolepsy without cataplexy; G47.61 Periodic limb movement disorder; G43.909 Migraine, unspecified, not intractable, without status migrainosus; M79.7 Fibromyalgia; E28.2 Polycystic ovarian syndrome; K58.2 Mixed irritable bowel syndrome; L70.0 Acne vulgaris; E55.9 Vitamin D deficiency, unspecified; F41.9 Anxiety disorder, unspecified; F32.9 Major depressive disorder, single episode, unspecified; E66.3 Overweight; Z68.29 Body mass index [BMI] 29.0-29.9, adult | CPT/HCPCS: 96127; 99212 ==

== ENCOUNTER 2024-10-03 10:22 | Outpatient (AMB) | payer OTHER, SELFPAY ==
--- NOTE | 2024-10-03 10:34 | MHC.OFFVIS ---
Vital Signs 10/03/24 10:35 Height 5 ft 2 in Weight 161 lb BMI 29.4 Intake Visit Reasons: Follow Up Intake Note: patient presents for follow up. lumyriz making patient nauseous would like something for it . Allergies No Known Allergies [No Known Allergies*] Allergy (Verified 10/03/24 10:35) Medication List - Last Reconciled 10/03/24 by DARREN Franco aripiprazole 5 mg PO DAILY 90 days bupropion HCl XL 150 mg PO DAILY 90 days bupropion HCl XL 300 mg PO DAILY 90 days cholecalciferol (vitamin D3) (Vitamin D3) 25 mcg PO DAILY 90 days dextroamphetamine-amphetamine 20 mg ER (Adderall XR) 20 mg PO DAILY 30 days dextroamphetamine-amphetamine 30 mg ER (Adderall XR) 30 mg PO QAM 30 days loratadine (Claritin) 10 mg PO DAILY PRN 90 days metformin 1,000 mg PO DAILY minocycline 100 mg PO DAILY ondansetron 8 mg PO Q12H PRN ondansetron 8 mg PO Q12H PRN 90 days sodium oxybate ER (Lumryz) 6 grams PO BEDTIME 30 days solriamfetol (Sunosi) 150 mg PO DAILY 30 days spironolactone 50 mg PO BID tretinoin 0.025% appl topical HPI Comments Details: 39-yr-old female presents for f/u of narcolepsy. Pt denies any significant interval medical changes. Patient has increased Lumryz from 4.5 gm qhs to 6 g q.h.s. she is adjusting to it. It does still cause nausea. She wonders if she could take ondansetron with it, she used to take 8 mg ODT from GI in the past. Her daytime GI symptoms are much better since she last saw GI. We also adjusted her Adderall dosage to 30 mg XR q.a.m. and 20 mg ER Q afternoon, which is working better. This is helping her daytime sleepiness. She has decided not to move back to [place].. [facility] Medical History VASILE (obstructive sleep apnea) Acne vulgaris Vitamin D deficiency Migraine Narcolepsy ASCUS of cervix with negative high risk HPV Chronic pain syndrome Arthropathy of lumbar facet joint Sacroiliitis Hemorrhoids Overweight (BMI 25.0-29.9) Anxiety and depression Fibromyalgia Lumbar degenerative disc disease Surgical History History of excision of lesion (~11/02/18) History of esophagogastroduodenoscopy (EGD) Hx of colonoscopy Family History Maternal Grandfather Lung cancer Mother Aortic aneurysm Fibroids Maternal Grandmother Asthma Social History Housing: Apartment Alcohol intake: never Patient Tobacco Use Status: Former Tobacco user e-Cigarette/Vaping Use: Currently Using Second Hand Smoke Exposure: Yes service: No Current occupational status: employed 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 Cognitive needs: No Hearing needs: No Vision needs: Yes Female Reproductive History Menstrual Age of Menarche: 14 Physical Exam Vital Signs: BMI result Body Mass Index 29.4 Const General: cooperative and no acute distress Orientation/consciousness: patient oriented x3 Resp Effort & Inspection: normal respiratory effort and able to speak in complete sentences Neuro General: patient oriented x3 Cognition (Neuro): normal cognition Psych Appearance: grossly normal Mental Status: mental status grossly normal Speech and movement: Normal speech and movement present Affect: normal affect Attitude: cooperative Assessment & Plan Assessment & Plan (1) Narcolepsy without cataplexy: Comment: 2021- Positive MSLT w/ short sleep onet naps and 2 SOREMs. Possible cataplexy- ? episode w/ pt's mother of sudden weakness was ctaplexy. Code(s): G47.419 - Narcolepsy without cataplexy Category: Medical (2) Hypersomnia: Code(s): G47.10 - Hypersomnia, unspecified Category: Medical (3) Periodic limb movements of sleep: Code(s): G47.61 - Periodic limb movement disorder Category: Medical Plan Continue Lumryz 6 Gm qhs for now. Lumryz specific instructions: including to not take it until she is actually in bed, to keep the medication in a locked box, to avoid taking Lumryz w/ alcohol or other sedating agents. Retrial ondansetron ODT 8 mg q.12 hours as needed for nausea. Continue Sunosi 150mg qam. Continue Adderall ER 30mg qd. Continue Adderall ER 20 mg Q afternoon ?Pt to monitor for episodes of sudden weakness. Monitor PLMS seen on MSLT in 2021. We will follow up with patient regarding migraine diagnosis in follow-up. ? Pt to follow-up in 3-4 months or sooner prn. Medications: Changed From ondansetron 8 mg PO Q12H 60 tabs 3RF 30 days R11.2 - Nausea with vomiting, unspecified To ondansetron 8 mg PO Q12H 90 days PRN 135 tabs 3RF nausea and vomiting R11.2 - Nausea with vomiting, unspecified Refilled dextroamphetamine-amphetamine 30 mg ER (Adderall XR) Adderall Brand-name only. 30 mg PO QAM 30 days 30 caps 0RF dextroamphetamine-amphetamine 20 mg ER (Adderall XR) In early afternoon. Partial Fill upon patient request. 20 mg PO DAILY 30 days 30 caps 0RF Coding Level of Care Code Est Pt Level 4 (60548) Diagnoses Narcolepsy without cataplexy G47.419 Hypersomnia G47.10 Periodic limb movements of sleep G47.61
[2024-10-03 10:35] VITALS: BMI 29.4
== END 2024-10-03 11:36 | disposition home or self-care (01) ==
PROVIDERS: PCP Internal Medicine; Visit Provider Nurse Practitioner Family
DX: G47.419 Narcolepsy without cataplexy (principal); G47.10 Hypersomnia, unspecified; G47.61 Periodic limb movement disorder
CPT/HCPCS: 99214

== ENCOUNTER → 2024-10-03 10:22 | Outpatient (BNVA) | payer OTHER, SELFPAY | PROVIDERS: PCP Internal Medicine; Visit Provider Nurse Practitioner Family | DX: G47.419 Narcolepsy without cataplexy (principal); G47.10 Hypersomnia, unspecified; G47.61 Periodic limb movement disorder; R11.2 Nausea with vomiting, unspecified; Z79.899 Other long term (current) drug therapy | CPT/HCPCS: 99212 ==

== ENCOUNTER 2024-11-14 09:55 | Outpatient (REF) | payer OTHER, SELFPAY ==
[2024-11-14 13:25] LABS: MANUAL DIFF FLAG NO
[2024-11-14 13:48] LABS: Basophils Absolute Auto 0.1 X10*3/uL (0.0-0.2); Basophils Percent Auto 0.5 % (0-2); Eosinophils Absolute Auto 0.3 X10*3/uL (0.0-0.4); Eosinophils Percent Auto 2.4 % (0-4); Hemoglobin 12.6 g/dl (12.0-16.0); Imm Gran Abs Auto 0.07 X10*3/uL (0.00-0.03); Imm Gran Pct Auto 0.6 % (0.0-0.4); Lymphocytes Absolute Auto 2.9 X10*3/uL (1.2-4.9); Lymphocytes Percent Auto 22.9 % (20-40); Mean Corpuscular HGB Conc 34.1 g/dl (31.0-35.0); Mean Corpuscular Hemoglobin 29.1 pg (27.0-33.0); Mean Corpuscular Volume 85.5 fL (80.0-98.0); Mean Platelet Volume 9.8 fL (9.4-12.3); Monocytes Absolute Auto 0.7 X10*3/uL (0.1-1.2); Monocytes Percent Auto 5.4 % (2-11); Neutrophils Absolute Auto 8.6 x10*3/uL (2.0-8.3); Neutrophils Percent Auto 68.2 % (45-73); Platelet Count 421 X10*3/uL (160-400); Red Blood Count 4.33 X10*6/uL (4.20-5.50); Red Cell Distribution Width 12.7 % (11.0-16.0); White Blood Count 12.6 X10*3/uL (4.8-10.8)
[2024-11-14 13:55] LABS: Appearance Urine Clear; Color Urine Yellow; Glucose Urine UA Negative (Negative); Leukocyte Esterase Urine Negative (Negative); Nitrite Urine Negative (Negative); Urine Blood Negative (Negative); Urine Ketones Negative (Negative); Urine Protein Negative (Neg-Trace)
[2024-11-14 14:14] LABS: Alanine Aminotransferase 24 U/L (0-31); Albumin Level 3.8 g/dL (3.5-5.0); Alkaline Phosphatase 39 U/L (39-117); Anion Gap 12 (12-20); Aspartate Amino Transferase 22 U/L (5-31); Bilirubin Total 0.3 mg/dL (0.0-1.0); Blood Urea Nitrogen 7 mg/dL (9-16); Calcium 9.2 mg/dL (8.4-10.2); Carbon Dioxide 25 mmol/L (22-29); Chloride 105 mmol/L (96-108); Cholesterol 192 mg/dL (<200); Estimated Glomerular Filt Rate > 60; Glucose Fasting 81 mg/dL (60-99); HDL Cholesterol 94 mg/dL (>40); LDL Cholesterol Calculated 67 mg/dL (<100); Potassium 3.7 mmol/L (3.3-5.1); Sodium 138 mmol/L (135-145); Triglycerides 157 mg/dL (<150)
[2024-11-14 14:19] LABS: TSH reflex Free T4 2.34 uIU/mL (0.32-4.0); Vitamin D 25-OH Total 46.4 ng/mL (>30)
== END 2024-11-14 09:56 | disposition home or self-care (01) ==
LOC: HO.HMGCLDS 09:55
PROVIDERS: PCP Internal Medicine; Visit Provider Internal Medicine
DX: Z00.00 Encounter for general adult medical examination without abnormal findings (principal); E78.00 Pure hypercholesterolemia, unspecified; R30.0 Dysuria; E55.9 Vitamin D deficiency, unspecified; D64.9 Anemia, unspecified
CPT/HCPCS: 36415; 80053; 80061; 81003; 82306; 84443; 85025

== ENCOUNTER 2025-02-13 08:45 | Outpatient (AMB) | payer OTHER, SELFPAY ==
[2025-02-13 09:07] VITALS: BP 118/80; PULSE 93; O2SAT 98; BMI 29.1
--- NOTE | 2025-02-13 09:07 | MHC.OFFVIS ---
Vital Signs 02/13/25 09:07 Height 5 ft 2 in Weight 159 lb BMI 29.1 BP 118/80 Blood Pressure Location Rt brachial Pulse 93 Pulse Source Pulse Oximeter Pulse Oximetry (%) 98 Oxygen Delivery Method Room Air Intake Visit Reasons: Follow up Teleservices Representative Required: No Accompanied by: Self / Same As Patient Allergies No Known Allergies [No Known Allergies*] Allergy (Verified 02/13/25 09:10) Medication List - Last Reconciled 02/13/25 by DARREN Franco bupropion HCl XL 300 mg PO DAILY 90 days bupropion HCl XL 150 mg PO DAILY 90 days cholecalciferol (vitamin D3) (Vitamin D3) 25 mcg PO DAILY 90 days dextroamphetamine-amphetamine 20 mg ER (Adderall XR) 20 mg PO DAILY 30 days dextroamphetamine-amphetamine 30 mg ER (Adderall XR) 30 mg PO QAM 30 days loratadine (Claritin) 10 mg PO DAILY PRN 90 days metformin 1,000 mg PO DAILY minocycline 100 mg PO DAILY ondansetron 8 mg PO Q12H PRN ondansetron 8 mg PO Q12H PRN 90 days prednisolone acetate 1% 1 drp ophthalmic (eye) BID sodium oxybate ER (Lumryz) 6 grams PO BEDTIME 30 days solriamfetol (Sunosi) 150 mg PO DAILY 30 days spironolactone 50 mg PO BID tretinoin 0.025% appl topical HPI Comments Details: 39-yr-old female presents for f/u of narcolepsy. Pt reports she had a bout of right eye iritis, which is being tx'd w/ a prednisone taper. She believes she has had a bout of iritis before- though not formerly dx'd. She is being followed by Dr Babb at [facility] in [address] [place] [address]. She is prone to dry eye, photophobia, rashes, joint pain, back pain, has had menstrual cycle x's > 1 yr, PCOS,, fatigue, lightheadedness, headache/migraine. Patient reports her narcolepsy symptoms are about the same, however she feels more fatigued. Patient has held Lumryz due to the nausea. She is compliant with Adderall dosage to 30 mg XR q.a.m. and 20 mg ER Q afternoon. She is compliant with Sunosi. These help with her daytime sleepiness. However continues to need scheduled daytime naps. Tends take a 1 hour nap when she returns home from work, and sometimes may need a shoulder later day nap. She maintains a consistent bedtime schedule, but may wake up couple of times night. She often feels bad that she needs to take daytime naps to manage her narcolepsy symptoms. [facility] Medical History (Updated 02/13/25 @ 09:44 by DARREN Franco) Anemia VASILE (obstructive sleep apnea) Acne vulgaris Vitamin D deficiency Migraine Narcolepsy ASCUS of cervix with negative high risk HPV Chronic pain syndrome Arthropathy of lumbar facet joint Sacroiliitis Hemorrhoids Overweight (BMI 25.0-29.9) Anxiety and depression Fibromyalgia Lumbar degenerative disc disease Surgical History History of excision of lesion (~11/02/18) History of esophagogastroduodenoscopy (EGD) Hx of colonoscopy Family History Maternal Grandfather Lung cancer Mother Aortic aneurysm Fibroids Maternal Grandmother Asthma Social History Housing: Apartment Alcohol intake: never Patient Tobacco Use Status: Former Tobacco user e-Cigarette/Vaping Use: Currently Using Second Hand Smoke Exposure: Yes service: No Current occupational status: employed 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 Cognitive needs: No Hearing needs: No Vision needs: Yes Female Reproductive History Menstrual Age of Menarche: 14 Physical Exam Vital Signs: Last Vital Signs Pulse 93 02/13/25 09:07 BP 118/80 02/13/25 09:07 Pulse Ox 98 02/13/25 09:07 Oxygen Delivery Method Room Air 02/13/25 09:07 BMI result Body Mass Index 29.1 Const General: cooperative and no acute distress Orientation/consciousness: patient oriented x3 Resp Effort & Inspection: normal respiratory effort and able to speak in complete sentences Neuro General: patient oriented x3 Cognition (Neuro): normal cognition Psych Appearance: grossly normal Mental Status: mental status grossly normal Speech and movement: Normal speech and movement present Affect: normal affect Attitude: cooperative Assessment & Plan Assessment & Plan (1) Narcolepsy without cataplexy: Comment: 2021- Positive MSLT w/ short sleep onet naps and 2 SOREMs. Possible cataplexy- ? episode w/ pt's mother of sudden weakness was ctaplexy. Code(s): G47.419 - Narcolepsy without cataplexy Category: Medical (2) Hypersomnia: Code(s): G47.10 - Hypersomnia, unspecified Category: Medical (3) Periodic limb movements of sleep: Code(s): G47.61 - Periodic limb movement disorder Category: Medical (4) Recurrent acute anterior uveitis: Code(s): 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, unspecified eye Category: Medical (5) Fatigue: Code(s): R53.83 - Other fatigue Category: Medical Plan S patient has ongoing fatigue in setting of recent recurrent iritis, we will check labs and XR thoracic and lumbar spine to assess for underlying etiologies. Hold Lumryz order- patient did not tolerate due to nausea. Continue Sunosi 150mg qam. Continue Adderall ER 30mg qd. Continue Adderall ER 20 mg Q afternoon Pt to monitor for episodes of sudden weakness. Monitor PLMS seen on MSLT in 2021. We will follow up with patient regarding migraine diagnosis in follow-up. ? Pt to follow-up in 3-4 months or sooner prn. Orders: Orders Rheumatoid Factor Today E28.2 - Polycystic ovarian syndrome, E55.9 - Vitamin D deficiency, unspecified, G47.419 - Narcolepsy without cataplexy, 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, unspecified eye, M54.50 - Low back pain, unspecified, R11.2 - Nausea with vomiting, unspecified, R53.83 - Other fatigue Sjogren's Antibodies Today E28.2 - Polycystic ovarian syndrome, E55.9 - Vitamin D deficiency, unspecified, G47.419 - Narcolepsy without cataplexy, 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, unspecified eye, M54.50 - Low back pain, unspecified, R11.2 - Nausea with vomiting, unspecified, R53.83 - Other fatigue Erythrocyte Sedimentation Rate Today E28.2 - Polycystic ovarian syndrome, E55.9 - Vitamin D deficiency, unspecified, G47.419 - Narcolepsy without cataplexy, 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, unspecified eye, M54.50 - Low back pain, unspecified, R11.2 - Nausea with vomiting, unspecified, R53.83 - Other fatigue Complement C3 Today E28.2 - Polycystic ovarian syndrome, E55.9 - Vitamin D deficiency, unspecified, G47.419 - Narcolepsy without cataplexy, 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, unspecified eye, M54.50 - Low back pain, unspecified, R11.2 - Nausea with vomiting, unspecified, R53.83 - Other fatigue Comprehensive Met. Panel Today E28.2 - Polycystic ovarian syndrome, E55.9 - Vitamin D deficiency, unspecified, G47.419 - Narcolepsy without cataplexy, 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, unspecified eye, M54.50 - Low back pain, unspecified, R11.2 - Nausea with vomiting, unspecified, R53.83 - Other fatigue C Reactive Protein Today E28.2 - Polycystic ovarian syndrome, E55.9 - Vitamin D deficiency, unspecified, G47.419 - Narcolepsy without cataplexy, 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, unspecified eye, M54.50 - Low back pain, unspecified, R11.2 - Nausea with vomiting, unspecified, R53.83 - Other fatigue Anti DNA DS Antibody Today E28.2 - Polycystic ovarian syndrome, E55.9 - Vitamin D deficiency, unspecified, G47.419 - Narcolepsy without cataplexy, 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, unspecified eye, M54.50 - Low back pain, unspecified, R11.2 - Nausea with vomiting, unspecified, R53.83 - Other fatigue Other Ref Test - Misc Today E28.2 - Polycystic ovarian syndrome, E55.9 - Vitamin D deficiency, unspecified, G47.419 - Narcolepsy without cataplexy, 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, unspecified eye, M54.50 - Low back pain, unspecified, R11.2 - Nausea with vomiting, unspecified, R53.83 - Other fatigue XR thoracic spine 3V Today 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, unspecified eye, M54.9 - Dorsalgia, unspecified XR lumbar spine 4V min Today 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, unspecified eye, M54.9 - Dorsalgia, unspecified Homocysteine Today D64.9 - Anemia, unspecified, M54.9 - Dorsalgia, unspecified, R53.83 - Other fatigue EVARISTO Reflex Titer and Pattern Today E28.2 - Polycystic ovarian syndrome, E55.9 - Vitamin D deficiency, unspecified, G47.419 - Narcolepsy without cataplexy, 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, unspecified eye, M54.50 - Low back pain, unspecified, R11.2 - Nausea with vomiting, unspecified, R53.83 - Other fatigue Angiotensin Converting Enzyme Today E28.2 - Polycystic ovarian syndrome, E55.9 - Vitamin D deficiency, unspecified, G47.419 - Narcolepsy without cataplexy, 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, unspecified eye, M54.50 - Low back pain, unspecified, R11.2 - Nausea with vomiting, unspecified, R53.83 - Other fatigue Complement C4 Today E28.2 - Polycystic ovarian syndrome, E55.9 - Vitamin D deficiency, unspecified, G47.419 - Narcolepsy without cataplexy, 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, unspecified eye, M54.50 - Low back pain, unspecified, R11.2 - Nausea with vomiting, unspecified, R53.83 - Other fatigue Complete Blood Count Auto Diff Today E28.2 - Polycystic ovarian syndrome, E55.9 - Vitamin D deficiency, unspecified, G47.419 - Narcolepsy without cataplexy, 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, unspecified eye, M54.50 - Low back pain, unspecified, R11.2 - Nausea with vomiting, unspecified, R53.83 - Other fatigue Vitamin D 25-OH (D2 and D3) Today E28.2 - Polycystic ovarian syndrome, E55.9 - Vitamin D deficiency, unspecified, G47.419 - Narcolepsy without cataplexy, 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, unspecified eye, M54.50 - Low back pain, unspecified, R11.2 - Nausea with vomiting, unspecified, R53.83 - Other fatigue Hemoglobin A1c Today E28.2 - Polycystic ovarian syndrome, E55.9 - Vitamin D deficiency, unspecified, G47.419 - Narcolepsy without cataplexy, 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, unspecified eye, M54.50 - Low back pain, unspecified, R11.2 - Nausea with vomiting, unspecified, R53.83 - Other fatigue Ferritin Today D64.9 - Anemia, unspecified, M54.9 - Dorsalgia, unspecified, R53.83 - Other fatigue Vitamin B12 and Folate Today D64.9 - Anemia, unspecified, M54.9 - Dorsalgia, unspecified, R53.83 - Other fatigue Methylmalonic Acid Today D64.9 - Anemia, unspecified, M54.9 - Dorsalgia, unspecified, R53.83 - Other fatigue IRON PROFILE Today D64.9 - Anemia, unspecified, M54.9 - Dorsalgia, unspecified, R53.83 - Other fatigue Coding Level of Care Code Est Pt Level 4 (34442) Diagnoses Narcolepsy without cataplexy G47.419 Hypersomnia G47.10 Periodic limb movements of sleep G47.61 Recurrent acute anterior uveitis H20.029 Fatigue R53.83
== END 2025-02-13 10:09 | disposition home or self-care (01) ==
LOC: HO.HSMS 08:46
PROVIDERS: PCP Internal Medicine; Visit Provider Nurse Practitioner Family
DX: G47.419 Narcolepsy without cataplexy (principal); G47.10 Hypersomnia, unspecified; G47.61 Periodic limb movement disorder; H20.029 Recurrent acute iridocyclitis, unspecified eye; R53.83 Other fatigue
CPT/HCPCS: 99214

== ENCOUNTER → 2025-02-13 08:45 | Outpatient (BNVA) | payer OTHER, SELFPAY | PROVIDERS: PCP Internal Medicine; Visit Provider Nurse Practitioner Family | DX: G47.419 Narcolepsy without cataplexy (principal); G47.10 Hypersomnia, unspecified; G47.61 Periodic limb movement disorder; H20.029 Recurrent acute iridocyclitis, unspecified eye; R53.83 Other fatigue; E28.2 Polycystic ovarian syndrome; E55.9 Vitamin D deficiency, unspecified; M54.50 Low back pain, unspecified; R11.2 Nausea with vomiting, unspecified; D64.9 Anemia, unspecified | CPT/HCPCS: 99212 ==

== ENCOUNTER 2025-03-13 08:42 | Outpatient (REF) | payer OTHER, SELFPAY ==
--- NOTE | ~2025-03-13 | XR_ITS ---
EXAMINATION: XR LUMBOSACRAL SPINE CLINICAL INFORMATION: M54.9 - Dorsalgia, unspecified COMPARISON: None available. TECHNIQUE: 5 views of the lumbar spine, inclusive of bilateral oblique views, were obtained. FINDINGS: No scoliosis. Normal lordosis. The vertebral bodies and posterior elements are normal. The disc spaces are preserved and the vertebral alignment is normal. Facets are normally aligned. There is no pars defect. The paraspinal soft tissues are normal. XR/XR lumbar spine 4V min IMPRESSION: Normal lumbar spine. Electronically signed by: Vijay Epps MD 03/13/2025 10:03 AM EDT
--- NOTE | ~2025-03-13 | XR_ITS ---
EXAMINATION: XR THORACIC SPINE CLINICAL INFORMATION: M54.9 - Dorsalgia, unspecified COMPARISON: 01/06/2022. TECHNIQUE: 3 views of the thoracic spine were obtained. FINDINGS: There is no scoliosis. There is normal kyphosis. There is normal alignment. There is a minimal chronic appearing superior endplate compression deformity of T4. This is unchanged. There is no additional compression deformity or fracture. There is no focal bony abnormality. Disc spaces appear normal. No paraspinal soft tissue abnormalities. XR/XR thoracic spine 3V IMPRESSION: 1. Chronic mild superior endplate compression deformity of T4, unchanged. 2. The examination is otherwise normal. Electronically signed by: Vijay Epps MD 03/13/2025 10:01 AM EDT
[2025-03-13 09:04] LABS: MANUAL DIFF FLAG NO
[2025-03-13 09:14] LABS: Basophils Percent Auto 0.3 % (0-2); Eosinophils Absolute Auto 0.4 X10*3/uL (0.0-0.4); Eosinophils Percent Auto 3.4 % (0-4); Hematocrit 38.8 % (37.0-47.0); Hemoglobin 13.3 g/dl (12.0-16.0); Imm Gran Abs Auto 0.04 X10*3/uL (0.00-0.03); Imm Gran Pct Auto 0.3 % (0.0-0.4); Lymphocytes Absolute Auto 2.1 X10*3/uL (1.2-4.9); Mean Corpuscular HGB Conc 34.3 g/dl (31.0-35.0); Mean Corpuscular Hemoglobin 29.1 pg (27.0-33.0); Mean Corpuscular Volume 84.9 fL (80.0-98.0); Mean Platelet Volume 9.5 fL (9.4-12.3); Monocytes Absolute Auto 0.7 X10*3/uL (0.1-1.2); Monocytes Percent Auto 5.2 % (2-11); Neutrophils Absolute Auto 9.8 x10*3/uL (2.0-8.3); Neutrophils Percent Auto 74.8 % (45-73); Platelet Count 407 X10*3/uL (160-400); Red Blood Count 4.57 X10*6/uL (4.20-5.50); Red Cell Distribution Width 12.4 % (11.0-16.0); White Blood Count 13.1 X10*3/uL (4.8-10.8)
[2025-03-13 09:19] LABS: Estimated Average Glucose 97 mg/dL
[2025-03-13 10:07] LABS: Erythrocyte Sedimentation Rate 3 MM/HR (0-20)
[2025-03-13 10:15] LABS: Alanine Aminotransferase 33 U/L (0-31); Albumin Level 4.1 g/dL (3.5-5.0); Alkaline Phosphatase 48 U/L (39-117); Anion Gap 13 (12-20); Bilirubin Total 0.2 mg/dL (0.0-1.0); Blood Urea Nitrogen 12 mg/dL (9-16); C Reactive Protein 1.14 mg/dL (< or = 0.50); Calcium 9.3 mg/dL (8.4-10.2); Carbon Dioxide 22 mmol/L (22-29); Chloride 107 mmol/L (96-108); Estimated Glomerular Filt Rate > 60; Glucose Random 100 mg/dL (60-115); Iron 34 mcg/dL (30-160); Percent Iron Saturation 9 % (15-50); Potassium 4.1 mmol/L (3.3-5.1); Sodium 138 mmol/L (135-145); Total Iron Binding Capacity 390 mcg/dL (228-428); Total Protein 6.9 g/dL (6.5-8.0); Unsaturated Iron Binding 356 ug/dL
[2025-03-13 10:23] LABS: Ferritin 33 ng/mL (10-122)
[2025-03-13 10:36] LABS: Aspartate Amino Transferase 24 U/L (5-31); Folate 5.1 ng/mL (> or = 4.0); Rheumatoid Factor < 13.0 IU/mL (<15.0); Vitamin B12 389 pg/mL (200-900)
[2025-03-16 01:14] LABS: Angiotensin Converting Enzyme 37 U/L (9-67)
[2025-03-16 13:14] LABS: Complement C3 183 mg/dL (83-193)
[2025-03-16 23:13] LABS: Anti DNA DS Antibody <1 IU/mL; Antibody to SS-A Antigen <1.0 NEG AI (<1.0 NEG); Antibody to SS-B Antigen <1.0 NEG AI (<1.0 NEG)
[2025-03-17 07:22] LABS: Methylmalonic Acid 150 nmol/L (55-335)
[2025-03-17 13:05] LABS: Vitamin D 25-OH, D2 <4 ng/mL; Vitamin D 25-OH, D3 29 ng/mL; Vitamin D 25-OH, Total 29 ng/mL (30-100)
[2025-03-18 13:04] LABS: HLA B27 Negative (Negative)
[2025-03-18 13:44] LABS: Homocysteine 7.2 umol/L (< or = 11.0)
[2025-03-19 15:14] LABS: Anti Nuclear Antibody Pattern Nuclear, Speckled; Anti Nuclear Antibody Screen POSITIVE (NEGATIVE); Anti Nuclear Antibody Titer 1:40 titer
== END 2025-03-13 08:43 | disposition home or self-care (01) ==
LOC: HO.LAB 08:42
PROVIDERS: PCP Internal Medicine; Visit Provider Nurse Practitioner Family
DX: I10 Essential (primary) hypertension (principal); G47.419 Narcolepsy without cataplexy; E55.9 Vitamin D deficiency, unspecified; E28.2 Polycystic ovarian syndrome; M54.50 Low back pain, unspecified; R11.2 Nausea with vomiting, unspecified; R53.83 Other fatigue; D64.9 Anemia, unspecified; M54.9 Dorsalgia, unspecified
CPT/HCPCS: 36415; 72072; 72110; 80053; 82164; 82306; 82607; 82728; 82746; 83036; 83090; 83540; 83921; 85025; 85652; 86038; 86039; 86140; 86160; 86225; 86235; 86431; 86812

== ENCOUNTER → 2025-03-13 09:04 | Outpatient (BNV) | payer OTHER, SELFPAY | PROVIDERS: PCP Internal Medicine; Visit Provider Radiology Diagnostic Radiology | DX: M54.50 Low back pain, unspecified (principal); M54.6 Pain in thoracic spine | CPT/HCPCS: 72072; 72110 ==

== ENCOUNTER 2025-05-29 11:28 | Outpatient (AMB) | payer OTHER, SELFPAY ==
--- OUTSIDE RECORDS SUMMARY | 2025-05-29 11:30 | XMS_ITS | Clinical Summary ---
Author Organization [facility] Address [address] [place] [id number] Phone Care Team Providers Care Control Engineer Name Role Phone Unavailable Primary Care Provider Unavailabl e Encounters Date Type Department Care Team Description 05/08/2025 Telephone [facility] Rheumatology [address] [place] [address] Unknown, Unknown, Appointment from Last 3 Months Social History Tobacco Use Types Packs/Day Years Used Date Smoking Tobacco: Never Assessed Comments Unknown Sex and Gender Information Value Date Recorded Sex Assigned at Not on file Legal Sex Female 3:04 PM EDT Gender Identity Not on file Sexual Orientation Not on file Plan of Treatment Not on file Medical Devices Not on file Additional Source Comments The information contained in this document represents components of the legal health record. It is not the complete legal health record.[facility]
--- NOTE | 2025-05-29 11:34 | MHC.PC.OV ---
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 Required: No Accompanied by: Self / Same As Patient Allergies No Known Allergies (No Known Allergies*) Allergy (Verified 05/29/25 12:13) Medication List - Last Reconciled 05/29/25 by TERRIE Figueroa bupropion HCl XL 150 mg PO DAILY 90 days bupropion HCl XL 300 mg PO DAILY 90 days cholecalciferol (vitamin D3) (Vitamin D3) 50 mcg (2 x 25 mcg (1,000 unit)) PO DAILY 90 days dextroamphetamine-amphetamine 20 mg ER (Adderall XR) 20 mg PO DAILY 30 days dextroamphetamine-amphetamine 30 mg ER (Adderall XR) 30 mg PO DAILY 30 days MDD 30mg ondansetron 8 mg PO Q12H PRN ondansetron 8 mg PO Q12H PRN 90 days prednisolone acetate 1% 1 drp ophthalmic (eye) BID sodium oxybate ER (Lumryz) 6 grams PO BEDTIME 30 days solriamfetol (Sunosi) 150 mg PO DAILY 30 days spironolactone 50 mg PO BID tretinoin 0.025% appl topical Tobacco use date assessed: 05/29/25 Dental Screening Dental Screen Date: 05/29/25 Did you have a dental visit in the last 12 months?: No Did you have a dental problem in the last 6 months where you did not have access to dental care?: No Was dental information given to patient?: Patient has dentist HPI annual exam HPI Details Dentist: have not been to the dentist in almost two years Eye: Reports seeing an ophthomalogist and 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 Snellen: Right: Left: Corrected vision: yes- she wears glasses-recommended making an appt STI screening: Colonoscopy:3 years ago and this was negative. Reports that her IBS lead her to getting a colonoscopy Pap Smer: 04/2025 ellerbestate PHQ-9: Flu: reports that she usually takes the flu vaccine yearly COVID: x4 Tdap:2019 Diet: regular Exercise:no The patient is a 40-year-old female presenting with concerns related to a positive EVARISTO test and associated symptoms. She reports a history of lumbar inflammation and hip area discomfort persisting for several years, which she describes as chronic and impacting her daily activities. Additionally, she has experienced recurrent uveitis, which her director agency & strategic partnerships has linked to potential chronic conditions. The patient has a history of narcolepsy, which has been exacerbated by recent stress and health issues, leading to significant work absences. She also reports a diagnosis of fibromyalgia, which she questions due to the lack of comprehensive testing at the time of diagnosis. The patient has been managing obsessive-compulsive disorder with aripiprazole, which she discontinued due to concerns about weight gain, resulting in a resurgence of OCD symptoms. She has also been experiencing migraines, which are not well-controlled with current [id number] medications. Her irritable bowel syndrome has historically presented with constipation, and she has noted a pattern of weight gain that she feels is disproportionate to her dietary intake. The patient expresses significant anxiety related to her health conditions and their impact on her life. Reports her obgyn sent a letter to dr. Auguste, questioning of he could her some of the test that rheumatology usually would because her appoint is so far out. [facility] Medical History Anemia VASILE (obstructive sleep apnea) Acne vulgaris Vitamin D deficiency Migraine Narcolepsy ASCUS of cervix with negative high risk HPV Chronic pain syndrome Arthropathy of lumbar facet joint Sacroiliitis Hemorrhoids Overweight (BMI 25.0-29.9) Anxiety and depression Fibromyalgia Lumbar degenerative disc disease Surgical History History of excision of lesion (~11/02/18) History of esophagogastroduodenoscopy (EGD) Hx of colonoscopy Family History Maternal Grandfather Lung cancer Mother Aortic aneurysm Fibroids Maternal Grandmother Asthma Social History Housing: Apartment Alcohol intake: never Patient Tobacco Use Status: Former Tobacco user e-Cigarette/Vaping Use: Currently Using Second Hand Smoke Exposure: Yes service: No Current occupational status: employed 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 1. Little interest or pleasure in doing things: nearly every day 2. Feeling down, depressed, or hopeless: more than half the days 3. Trouble falling or staying asleep, or sleeping too much: nearly every day 4. Feeling tired or having little energy: nearly every day 5. Poor appetite or overeating: several days 6. Feeling bad about yourself - or that you are a failure or have let yourself or your family down: nearly every day 7. Trouble concentrating on things, such as reading the newspaper or watching television: more than half the days 8. Moving or speaking so slowly that other people could have noticed. Or the opposite - being so fidgety or restless that you have been moving around a lot more than usual: several days 9. Thoughts that you would be better off or of hurting yourself in some way: not at all Total score: 18 Depression Screening Interpretation: Positive Depression Screening Done: Yes 94894 - PHQ-9 Billing: Yes Source: Developed by Drs. Walker Mccurdy, Magdalene Phipps, Miguel Armstrong and colleagues, with an educational viktoriya from [employer]. Thrive Questionnaire Date Thrive assessed: 05/29/25 I am a: Patient What is your living situation today?: I have a steady place to live Within the past 12 months, did the food you bought not last and you didn't have the money to get more?: Never true Within the past 12 months, did you worry whether your food would run out before you got money to buy more?: Never true Do you have trouble paying for medicines?: No Do you have trouble getting transportation to medical appointments?: No Do you have trouble paying your heating and electricity bill?: No Do you have trouble taking care of your child, family member or friend?: No Do you have trouble with day-to-day activities such as bathing, preparing meals, shopping, managing finances, etc.?: No Are you currently unemployed and looking for a job?: No Are you interested in more education?: No Please select the resources that you would like help with: None Currently or been in a relationship where the following occur: No concerns reported THRIVE Score: 0 AUDIT C Alcohol Use Questionnaire (AUDIT-C) 1. How often do you have a drink containing alcohol?: 2-4 times a month 2. How many drinks containing alcohol do you have on a typical day when you are drinking?: 3 or 4 3. How often do you have six or more drinks on one occasion?: Never Total Score: 3 KENYETTA-7 AMB Questionnaire KENYETTA-7 Date KENYETTA - 7 assessed: 05/29/25 Feeling nervous, anxious, or on edge: 1 = Several days Not being able to stop or control worryin = Several days Worrying too much about different things: 1 = Several days Trouble relaxin = Several days Being so restless that it is hard to sit still: 0 = Not at all Becoming easily annoyed or irritable: 1 = Several days Feeling afraid as if something awful might happen: 0 = Not at all Total KENYETTA-7 score (0-4 normal; 5-9 mild; 10-14 moderate; 15-21 severe): 5 Source: Developed by Drs. Walker Mccurdy, Magdalene Phipps, Miguel Armstrong and colleagues, with an educational viktoriya from [employer]. KENYETTA-7 Assessment Billing KENYETTA-7 Assessment Tool: KENYETTA-7 Assessment 56380 Review of Systems Const Reports headache(s) (on and off), Reports lethargy (Narcolepsy) and Reports weight gain Eyes Reports blurry vision (right eye resolved) and Denies loss of vision ENT Denies vertigo, Denies dizziness, Reports headache(s) (on and off) and Denies sore throat Card Denies chest pain, Denies leg edema and Denies lightheadedness Resp Denies cough, Denies hemoptysis and Denies wheezing GI Denies abdominal pain, Denies melena, Reports constipation (on and off), Denies diarrhea and Denies vomiting Denies urinary frequency, Denies dysuria and Denies urinary urgency Musc Reports back pain (chronic), Reports arthralgias (hips on and off), Denies joint swelling, Denies numbness and Denies tingling Neuro Denies Abnormal speech present, Denies behavioral changes, Denies vertigo, Denies dizziness, Reports headache(s) (on and off), Denies loss of vision, Denies memory loss, Denies numbness and Denies tingling Psych Reports anxiety, Denies behavioral changes, Denies depression, Reports difficulty concentrating, Reports anhedonia, Denies memory loss and Denies panic attacks Dale/Lymph Denies easy bleeding and Denies easy bruising Aller/Immun Denies wheezing Physical exam (Primary Care) Vital Signs: Last Vital Signs Temp 97.3 F 05/29/25 11:35 Pulse 104 H 05/29/25 11:35 Resp 18 05/29/25 11:35 BP 122/90 H 05/29/25 11:35 Pulse Ox 99 05/29/25 11:35 Oxygen Delivery Method Room Air 05/29/25 11:35 Tobacco/Smoking Status: Tobacco use Status Tobacco use date assessed 05/29/25 05/29/25 11:43 Patient Tobacco Use Status Former Tobacco user 05/29/25 11:43 e-Cigarette/Vaping Use Currently Using 05/29/25 11:43 PHQ-9: PHQ-9 Score PHQ-9: Total score 18 05/29/25 12:14 Depression Screening Interpretation: Positive Thrive Assessment: Date of Thrive Assessment Date Thrive assessed 05/29/25 05/29/25 11:43 Currently or been in a relationship where the following occur: No concerns reported Const General: healthy appearing, no acute distress, alert and awake Nutritional Appearance: well nourished Orientation/consciousness: oriented to person, oriented to place and oriented to time HENMT Ears: TM's normal bilaterally General nose exam: Normal nasal mucous membranes and turbinates present Eyes Conjunctivae: conjunctivae normal Sclerae: sclerae normal Pupils: Equal, round and reactive pupils present Neck Neck: Yes no lymphadenopathy and Yes no JVD Thyroid: Thyroid normal Carotids: no bruits Resp Effort & Inspection: normal respiratory effort and not tachypneic Auscultation: no crackles, no rales, no rhonchi and no wheezes Cardio Rate: regular rate Rhythm: regular rhythm Heart sounds: no murmurs and normal S1 and S2 GI Palpation (GI): Soft to palpation, nontender, no hepatomegaly and no splenomegaly Auscultation: normal bowel sounds General: Yes no CVA tenderness Back/Spine/Pelvis Back: no CVA tenderness Cervical Spine: Cervical spine tenderness Thoracic/Lumbar Spine: lumbar spinal tenderness Sacroiliac joints: bilaterally nontender Skin General skin exam: no rashes or lesions noted and dry skin Neuro General: oriented to person, oriented to place and oriented to time Cranial nerves: Yes Equal, round and reactive pupils present Speech: No Abnormal speech present Gait exam (Neuro): Normal gait present Motor exam (neuro): no tremor noted Extrem Right upper extremity: full ROM Left upper extremity: full ROM Right lower extremity: full ROM; no edema Left lower extremity: full ROM; no edema Psych Mental Status: mental status grossly normal Speech and movement: Normal speech and movement present Affect: normal affect Attitude: cooperative Thought process: Normal thought process present Coding Level of Care Code Est Pt Prev Care 18-39y([id number]) Diagnoses Annual physical exam Z00.00 Narcolepsy without cataplexy G47.419 Chronic pain syndrome G89.4 Arthropathy of lumbar facet joint M47.816 Degeneration of intervertebral disc of lumbar region with discogenic back pain M51.360 Disc-related pain type: discogenic back pain only Migraine without status migrainosus, not intractable, unspecified migraine type G43.909 Migraine type: unspecified Status migrainosus presence: without status migrainosus Intractability: not intractable Fibromyalgia M79.7 Sacroiliitis M46.1 Positive EVARISTO (antinuclear antibody) R76.8 Amenorrhea N91.2 Irritable bowel syndrome with both constipation and diarrhea K58.2 Vitamin D deficiency E55.9 Overweight (BMI 25.0-29.9) E66.3 PCOS (polycystic ovarian syndrome) E28.2 Anxiety and depression F41.9; F32.9 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 Possible cataplexy- ? episode w/ pt's mother of sudden weakness was ctaplexy. Code(s): G47.419 - Narcolepsy without cataplexy Category: Medical (3) Chronic pain syndrome: Code(s): G89.4 - Chronic pain syndrome Category: Medical (4) Arthropathy of lumbar facet joint: Code(s): M47.816 - Spondylosis without myelopathy or radiculopathy, lumbar region Category: Medical (5) Lumbar degenerative disc disease: Code(s): M51.36 - Other intervertebral disc degeneration, lumbar region Category: Medical Qualifiers: Disc-related pain type: discogenic back pain only Qualified Code(s): M51.360 - Other intervertebral disc degeneration, lumbar region with discogenic back pain only (6) Migraine: Code(s): G43.909 - Migraine, unspecified, not intractable, without status migrainosus Category: Medical Qualifiers: Migraine type: unspecified Status migrainosus presence: without status migrainosus Intractability: not intractable Qualified Code(s): G43.909 - Migraine, unspecified, not intractable, without status migrainosus (7) Fibromyalgia: Code(s): M79.7 - Fibromyalgia Category: Medical (8) Sacroiliitis: Code(s): M46.1 - Sacroiliitis, not elsewhere classified Category: Medical (9) Positive EVARISTO (antinuclear antibody): Code(s): R76.8 - Other specified abnormal immunological findings in serum Category: Medical (10) Amenorrhea: Comment: With hirsutism PCOS Code(s): N91.2 - Amenorrhea, unspecified Category: Medical (11) Irritable bowel syndrome with both constipation and diarrhea: Code(s): K58.2 - Mixed irritable bowel syndrome Category: Medical (12) Vitamin D deficiency: Code(s): E55.9 - Vitamin D deficiency, unspecified Category: Medical (13) Overweight (BMI 25.0-29.9): Code(s): E66.3 - Overweight Category: Medical (14) PCOS (polycystic ovarian syndrome): Code(s): E28.2 - Polycystic ovarian syndrome Category: Medical (15) Anxiety and depression: Code(s): F41.9 - Anxiety disorder, unspecified; F32.9 - Major depressive disorder, single episode, unspecified Category: Medical (16) Dermatillomania in adult: Code(s): F42.4 - Excoriation (skin-picking) disorder Category: Medical Plan Preventative screening reviewed with the patient. Labs ordered for the patient to complete as soon as possible. The patient was referred to rheumatology for further evaluation of the positive EVARISTO test and associated symptoms, although there is a significant wait time for an appointment. Management of narcolepsy will continue under neurology, with a focus on addressing stress-related exacerbations. The patient is advised to resume aripiprazole for OCD management, considering the resurgence of symptoms after discontinuation. Further evaluation of fibromyalgia is suggested to confirm the diagnosis, given the patient's doubts about its accuracy. The patient is encouraged to maintain regular follow-ups with her plastic tubing insulation supervisor and director agency & strategic partnerships to monitor uveitis and gynecological symptoms. Abilify reordered for patient were plans for her to follow up with Psychiatry. The patient is requesting blood work to evaluate autoimmune conditions while she await for appointment with Rheumatology. Discussed continuing lifestyle modification to assist in decreasing weight gain. Patient was informed and verbally consented to the use of an ambient scribe for clinic note documentation during this visit. Orders: Orders Complete Blood Count Auto Diff Today E28.2 - Polycystic ovarian syndrome, E55.9 - Vitamin D deficiency, unspecified, E66.3 - Overweight, F32.9 - Major depressive disorder, single episode, unspecified, F41.9 - Anxiety disorder, unspecified, F42.4 - Excoriation (skin-picking) disorder, G43.909 - Migraine, unspecified, not intractable, without status migrainosus, G47.419 - Narcolepsy without cataplexy, G89.4 - Chronic pain syndrome, 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, unspecified eye, K58.2 - Mixed irritable bowel syndrome, M47.816 - Spondylosis without myelopathy or radiculopathy, lumbar region, M51.360 - Other intervertebral disc degeneration, lumbar region with discogenic back pain only, M54.50 - Low back pain, unspecified, M54.9 - Dorsalgia, unspecified, M79.7 - Fibromyalgia, R76.8 - Other specified abnormal immunological findings in serum, Z00.00 - Encounter for general adult medical examination without abnormal findings Lipid Panel Today E28.2 - Polycystic ovarian syndrome, E55.9 - Vitamin D deficiency, unspecified, E66.3 - Overweight, F32.9 - Major depressive disorder, single episode, unspecified, F41.9 - Anxiety disorder, unspecified, F42.4 - Excoriation (skin-picking) disorder, G43.909 - Migraine, unspecified, not intractable, without status migrainosus, G47.419 - Narcolepsy without cataplexy, G89.4 - Chronic pain syndrome, 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, unspecified eye, K58.2 - Mixed irritable bowel syndrome, M47.816 - Spondylosis without myelopathy or radiculopathy, lumbar region, M51.360 - Other intervertebral disc degeneration, lumbar region with discogenic back pain only, M54.50 - Low back pain, unspecified, M54.9 - Dorsalgia, unspecified, M79.7 - Fibromyalgia, R76.8 - Other specified abnormal immunological findings in serum, Z00.00 - Encounter for general adult medical examination without abnormal findings EVARISTO Reflex Titer and Pattern Today E28.2 - Polycystic ovarian syndrome, E55.9 - Vitamin D deficiency, unspecified, E66.3 - Overweight, F32.9 - Major depressive disorder, single episode, unspecified, F41.9 - Anxiety disorder, unspecified, F42.4 - Excoriation (skin-picking) disorder, G43.909 - Migraine, unspecified, not intractable, without status migrainosus, G47.419 - Narcolepsy without cataplexy, G89.4 - Chronic pain syndrome, 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, unspecified eye, K58.2 - Mixed irritable bowel syndrome, M47.816 - Spondylosis without myelopathy or radiculopathy, lumbar region, M51.360 - Other intervertebral disc degeneration, lumbar region with discogenic back pain only, M54.50 - Low back pain, unspecified, M54.9 - Dorsalgia, unspecified, M79.7 - Fibromyalgia, R76.8 - Other specified abnormal immunological findings in serum, Z00.00 - Encounter for general adult medical examination without abnormal findings CRP High Sensitivity Today E28.2 - Polycystic ovarian syndrome, E55.9 - Vitamin D deficiency, unspecified, E66.3 - Overweight, F32.9 - Major depressive disorder, single episode, unspecified, F41.9 - Anxiety disorder, unspecified, F42.4 - Excoriation (skin-picking) disorder, G43.909 - Migraine, unspecified, not intractable, without status migrainosus, G47.419 - Narcolepsy without cataplexy, G89.4 - Chronic pain syndrome, 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, unspecified eye, K58.2 - Mixed irritable bowel syndrome, M47.816 - Spondylosis without myelopathy or radiculopathy, lumbar region, M51.360 - Other intervertebral disc degeneration, lumbar region with discogenic back pain only, M54.50 - Low back pain, unspecified, M54.9 - Dorsalgia, unspecified, M79.7 - Fibromyalgia, R76.8 - Other specified abnormal immunological findings in serum, Z00.00 - Encounter for general adult medical examination without abnormal findings Erythrocyte Sedimentation Rate Today E28.2 - Polycystic ovarian syndrome, E55.9 - Vitamin D deficiency, unspecified, E66.3 - Overweight, F32.9 - Major depressive disorder, single episode, unspecified, F41.9 - Anxiety disorder, unspecified, F42.4 - Excoriation (skin-picking) disorder, G43.909 - Migraine, unspecified, not intractable, without status migrainosus, G47.419 - Narcolepsy without cataplexy, G89.4 - Chronic pain syndrome, 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, unspecified eye, K58.2 - Mixed irritable bowel syndrome, M47.816 - Spondylosis without myelopathy or radiculopathy, lumbar region, M51.360 - Other intervertebral disc degeneration, lumbar region with discogenic back pain only, M54.50 - Low back pain, unspecified, M54.9 - Dorsalgia, unspecified, M79.7 - Fibromyalgia, R76.8 - Other specified abnormal immunological findings in serum, Z00.00 - Encounter for general adult medical examination without abnormal findings TSH reflex Free T4 Today E28.2 - Polycystic ovarian syndrome, E55.9 - Vitamin D deficiency, unspecified, E66.3 - Overweight, F32.9 - Major depressive disorder, single episode, unspecified, F41.9 - Anxiety disorder, unspecified, F42.4 - Excoriation (skin-picking) disorder, G43.909 - Migraine, unspecified, not intractable, without status migrainosus, G47.419 - Narcolepsy without cataplexy, G89.4 - Chronic pain syndrome, 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, unspecified eye, K58.2 - Mixed irritable bowel syndrome, M47.816 - Spondylosis without myelopathy or radiculopathy, lumbar region, M51.360 - Other intervertebral disc degeneration, lumbar region with discogenic back pain only, M54.50 - Low back pain, unspecified, M54.9 - Dorsalgia, unspecified, M79.7 - Fibromyalgia, R76.8 - Other specified abnormal immunological findings in serum, Z00.00 - Encounter for general adult medical examination without abnormal findings Rheumatoid Factor Today E28.2 - Polycystic ovarian syndrome, E55.9 - Vitamin D deficiency, unspecified, E66.3 - Overweight, F32.9 - Major depressive disorder, single episode, unspecified, F41.9 - Anxiety disorder, unspecified, F42.4 - Excoriation (skin-picking) disorder, G43.909 - Migraine, unspecified, not intractable, without status migrainosus, G47.419 - Narcolepsy without cataplexy, G89.4 - Chronic pain syndrome, 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, unspecified eye, K58.2 - Mixed irritable bowel syndrome, M47.816 - Spondylosis without myelopathy or radiculopathy, lumbar region, M51.360 - Other intervertebral disc degeneration, lumbar region with discogenic back pain only, M54.50 - Low back pain, unspecified, M54.9 - Dorsalgia, unspecified, M79.7 - Fibromyalgia, R76.8 - Other specified abnormal immunological findings in serum, Z00.00 - Encounter for general adult medical examination without abnormal findings Comprehensive [place]. Panel Fast Today E28.2 - Polycystic ovarian syndrome, E55.9 - Vitamin D deficiency, unspecified, E66.3 - Overweight, F32.9 - Major depressive disorder, single episode, unspecified, F41.9 - Anxiety disorder, unspecified, F42.4 - Excoriation (skin-picking) disorder, G43.909 - Migraine, unspecified, not intractable, without status migrainosus, G47.419 - Narcolepsy without cataplexy, G89.4 - Chronic pain syndrome, 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, unspecified eye, K58.2 - Mixed irritable bowel syndrome, M47.816 - Spondylosis without myelopathy or radiculopathy, lumbar region, M51.360 - Other intervertebral disc degeneration, lumbar region with discogenic back pain only, M54.50 - Low back pain, unspecified, M54.9 - Dorsalgia, unspecified, M79.7 - Fibromyalgia, R76.8 - Other specified abnormal immunological findings in serum, Z00.00 - Encounter for general adult medical examination without abnormal findings Vitamin D 25-OH Total Today E28.2 - Polycystic ovarian syndrome, E55.9 - Vitamin D deficiency, unspecified, E66.3 - Overweight, F32.9 - Major depressive disorder, single episode, unspecified, F41.9 - Anxiety disorder, unspecified, F42.4 - Excoriation (skin-picking) disorder, G43.909 - Migraine, unspecified, not intractable, without status migrainosus, G47.419 - Narcolepsy without cataplexy, G89.4 - Chronic pain syndrome, 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, unspecified eye, K58.2 - Mixed irritable bowel syndrome, M47.816 - Spondylosis without myelopathy or radiculopathy, lumbar region, M51.360 - Other intervertebral disc degeneration, lumbar region with discogenic back pain only, M54.50 - Low back pain, unspecified, M54.9 - Dorsalgia, unspecified, M79.7 - Fibromyalgia, R76.8 - Other specified abnormal immunological findings in serum, Z00.00 - Encounter for general adult medical examination without abnormal findings UA CC w/rflx Micro + Cult Today E28.2 - Polycystic ovarian syndrome, E55.9 - Vitamin D deficiency, unspecified, E66.3 - Overweight, F32.9 - Major depressive disorder, single episode, unspecified, F41.9 - Anxiety disorder, unspecified, F42.4 - Excoriation (skin-picking) disorder, G43.909 - Migraine, unspecified, not intractable, without status migrainosus, G47.419 - Narcolepsy without cataplexy, G89.4 - Chronic pain syndrome, 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9 - Major depressive disorder, single episode, unspecified, F41.9 - Anxiety disorder, unspecified, F42.4 - Excoriation (skin-picking) disorder, G43.909 - Migraine, unspecified, not intractable, without status migrainosus, G47.419 - Narcolepsy without cataplexy, G89.4 - Chronic pain syndrome, 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, unspecified eye, K58.2 - Mixed irritable bowel syndrome, M47.816 - Spondylosis without myelopathy or radiculopathy, lumbar region, M51.360 - Other intervertebral disc degeneration, lumbar region with discogenic back pain only, M54.50 - Low back pain, unspecified, M54.9 - Dorsalgia, unspecified, M79.7 - Fibromyalgia, R76.8 - Other specified abnormal immunological findings in serum, Z00.00 - Encounter for general adult medical examination without abnormal findings Cyclic Citrullinated Peptide Today E28.2 - Polycystic ovarian syndrome, E55.9 - Vitamin D deficiency, unspecified, E66.3 - Overweight, F32.9 - Major depressive disorder, single episode, unspecified, F41.9 - Anxiety disorder, unspecified, F42.4 - Excoriation (skin-picking) disorder, G43.909 - Migraine, unspecified, not intractable, without status migrainosus, G47.419 - Narcolepsy without cataplexy, G89.4 - Chronic pain syndrome, 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, unspecified eye, K58.2 - Mixed irritable bowel syndrome, M47.816 - Spondylosis without myelopathy or radiculopathy, lumbar region, M51.360 - Other intervertebral disc degeneration, lumbar region with discogenic back pain only, M54.50 - Low back pain, unspecified, M54.9 - Dorsalgia, unspecified, M79.7 - Fibromyalgia, R76.8 - Other specified abnormal immunological findings in serum, Z00.00 - Encounter for general adult medical examination without abnormal findings Referrals Psychiatry Referral F32.9 - Major depressive disorder, single episode, unspecified, F41.9 - Anxiety disorder, unspecified, F42.4 - Excoriation (skin-picking) disorder, F42.9 - Obsessive-compulsive disorder, unspecified Medications: New aripiprazole 5 mg PO DAILY 90 tabs 0RF Refilled bupropion HCl XL 150 mg PO DAILY 90 tabs 0RF 90 days bupropion HCl XL 300 mg PO DAILY 90 tabs 0RF 90 days
[2025-05-29 11:35] VITALS: BP 122/90; PULSE 104; RESP 18; TEMP 36.3; O2SAT 99
== END 2025-05-29 12:56 | disposition home or self-care (01) ==
PROVIDERS: PCP Internal Medicine
DX: Z00.00 Encounter for general adult medical examination without abnormal findings (principal); G47.419 Narcolepsy without cataplexy; M47.816 Spondylosis without myelopathy or radiculopathy, lumbar region; M51.360 Other intervertebral disc degeneration, lumbar region with discogenic back pain only; G43.909 Migraine, unspecified, not intractable, without status migrainosus; M79.7 Fibromyalgia; N91.2 Amenorrhea, unspecified; K58.2 Mixed irritable bowel syndrome; E55.9 Vitamin D deficiency, unspecified; E66.3 Overweight; E28.2 Polycystic ovarian syndrome; F41.9 Anxiety disorder, unspecified

== ENCOUNTER → 2025-05-29 11:28 | Outpatient (BNVA) | payer OTHER, SELFPAY | PROVIDERS: PCP Internal Medicine | DX: Z00.00 Encounter for general adult medical examination without abnormal findings (principal); G89.4 Chronic pain syndrome; G47.419 Narcolepsy without cataplexy; M47.816 Spondylosis without myelopathy or radiculopathy, lumbar region; M51.360 Other intervertebral disc degeneration, lumbar region with discogenic back pain only; G43.909 Migraine, unspecified, not intractable, without status migrainosus; M79.7 Fibromyalgia; M46.1 Sacroiliitis, not elsewhere classified; R76.8 Other specified abnormal immunological findings in serum; E55.9 Vitamin D deficiency, unspecified; K58.2 Mixed irritable bowel syndrome; E66.3 Overweight; E28.2 Polycystic ovarian syndrome; F41.9 Anxiety disorder, unspecified; F32.9 Major depressive disorder, single episode, unspecified; F42.4 Excoriation (skin-picking) disorder | CPT/HCPCS: 96127; 99395 ==

== ENCOUNTER 2025-08-21 11:08 | Outpatient (AMB) | payer OTHER, SELFPAY ==
[2025-08-21 11:37] VITALS: BP 122/70; PULSE 105; O2SAT 99; BMI 31.1
--- NOTE | 2025-08-21 11:37 | A.OFFVIS_ITS ---
Vital Signs 08/21/25 11:37 Height 5 ft 2 in Weight 170 lb BMI 31.1 BP 122/70 Blood Pressure Location Rt brachial Position Sitting Pulse 105 H Pulse Source Pulse Oximeter Pulse Oximetry (%) 99 Oxygen Delivery Method Room Air Intake Visit Reasons: 6m Follow up-[facility] [employer] Required: No Accompanied by: Self / Same As Patient Allergies No Known Allergies (No Known Allergies*) Allergy (Verified 08/21/25 11:40) Medication List - Last Reconciled 08/21/25 by DARREN Franco aripiprazole 5 mg PO DAILY bupropion HCl XL 300 mg PO DAILY 90 days bupropion HCl XL 150 mg PO DAILY 90 days cholecalciferol (vitamin D3) (Vitamin D3) 50 mcg (2 x 25 mcg (1,000 unit)) PO DAILY 90 days dextroamphetamine-amphetamine 20 mg ER (Adderall XR) 20 mg PO DAILY 30 days dextroamphetamine-amphetamine 30 mg ER (Adderall XR) 30 mg PO DAILY 30 days ondansetron 8 mg PO Q12H PRN ondansetron 8 mg PO Q12H PRN 90 days prednisolone acetate 1% 1 drp ophthalmic (eye) BID sodium oxybate ER (Lumryz) 6 grams PO BEDTIME 30 days solriamfetol (Sunosi) 150 mg PO DAILY 30 days spironolactone 50 mg PO DAILY tretinoin 0.025% appl topical HPI Comments Details: 40-yr-old female presents for f/u of narcolepsy. Interval history: She has been having bothersome PCOS and menorhgia symptoms, and is working with her [employer] and trying different hormonal tx's, though may need a hysterectomy. She reports she has had a headache at times, but no full migraine attacks. She has not had a recurrence of iritis, but her distance vision is a bit worse. However, her glasses do help. Interval EVARISTO was low positive 1:40- she has been referred to rheumatology- scheduled in January. She is being followed by Dr Babb at [facility] in [address] [place] [address]. She also notes that her daytime sleepiness and tiredness, low energy, and low motivtaion was present at the last visist here, but she thought it would pass so she did not bring it up. However, since it has become worse. Now, somedays she feels to tired to even shower or take her 8-yr-old son outside to play. She notes that her mood and sleep symptoms can exacerbate each other. She is timing her medications to help her go to work, and the adderal is not lasting long enough to get her through her whole day. Needing to sleep more during the day. She is compliant with Adderall dosage to 30 mg XR q.a.m. and 20 mg ER Q afternoon. She is compliant with Sunosi 150mg. However continues to need scheduled daytime naps. Tends take a 1 hour nap when she returns home from work, and sometimes may need a shoulder later day nap. She tries to schedule naps, but these seem to be longer, but tries to maintain a consistent bedtime schedule, but may wake up couple of times night. She often feels bad that she needs to take daytime naps to manage her narcolepsy symptoms, as her son is reporting that he would like her to be awake more. [facility] Medical History Anemia VASILE (obstructive sleep apnea) Acne vulgaris Vitamin D deficiency Migraine Narcolepsy ASCUS of cervix with negative high risk HPV Chronic pain syndrome Arthropathy of lumbar facet joint Sacroiliitis Hemorrhoids Overweight (BMI 25.0-29.9) Anxiety and depression Fibromyalgia Lumbar degenerative disc disease Surgical History History of excision of lesion (~11/02/18) History of esophagogastroduodenoscopy (EGD) Hx of colonoscopy Family History Maternal Grandfather Lung cancer Mother Aortic aneurysm Fibroids Maternal Grandmother Asthma Social History Housing: Apartment Alcohol intake: never Patient Tobacco Use Status: Former Tobacco user e-Cigarette/Vaping Use: Currently Using Second Hand Smoke Exposure: Yes service: No Current occupational status: employed 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 Cognitive needs: No Hearing needs: No Vision needs: Yes Female Reproductive History Menstrual Age of Menarche: 14 Physical Exam Vital Signs: Last Vital Signs Pulse 105 H 08/21/25 11:37 BP 122/70 08/21/25 11:37 Pulse Ox 99 08/21/25 11:37 Oxygen Delivery Method Room Air 08/21/25 11:37 BMI result Body Mass Index 31.1 Const General: cooperative, no acute distress and tired appearing Orientation/consciousness: patient oriented x3 Resp Effort & Inspection: normal respiratory effort and able to speak in complete sentences Neuro General: patient oriented x3 Cognition (Neuro): normal cognition Psych Appearance: grossly normal Mental Status: mental status grossly normal Speech and movement: Normal speech and movement present Affect: Sad affect present Attitude: cooperative Thought process: Normal thought process present Thought content: Normal thought content present Insight: Good insight present (Psych) Judgement: Good judgement present (Psych) Assessment & Plan Assessment & Plan (1) Narcolepsy without cataplexy: Comment: 2021- Positive MSLT w/ short sleep onet naps and 2 SOREMs. Possible cataplexy- ? episode w/ pt's mother of sudden weakness was ctaplexy. 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 * Week 1: Take two 4.45 mg tabs (8.9 mg total) daily in the morning * Week 2 and onward: Take one 17.8 mg tab daily in the morning Continue Sunosi 150mg daily in the morning Continue Adderall ER 30mg daily in the morning Continue Adderall ER 20 mg daily in the afternoon Patient to monitor for episodes of sudden weakness. Continue to monitor PLMS seen on MSLT in 2021. Previous trials: Lumryz caused significant nausea. For migraine: Riboflavin 400 mg daily in the morning Start vitamin B12 250 mcg daily in the morning Start Co Q10 10 mg daily in the morning Magnesium 400 mg daily at bedtime- may help periodic limb movement of sleep as well ? Pt to follow-up in 3-4 months or sooner prn. Coding Level of Care Code Est Pt Level 4 (84545) Diagnoses Narcolepsy without cataplexy G47.419 Hypersomnia G47.10 Periodic limb movements of sleep G47.61 Recurrent acute anterior uveitis H20.029 Fatigue, unspecified type R53.83 Fatigue type: unspecified
--- OUTSIDE RECORDS SUMMARY | 2025-08-21 13:27 | XMS_ITS | Clinical Summary ---
Author Organization [facility] Address [address] [place], [place] [id number] Phone Care Team Providers Care Control Room Supervisor Name Role Phone Unavailable Primary Care Provider Unavailabl e Social History Tobacco Use Types Packs/Day Years [...] It is not the complete legal health record.[facility]
--- OUTSIDE RECORDS SUMMARY | 2025-08-21 13:27 | XMS_ITS | Data Portability ---
Author Organization [place] [facility] [place], [facility], Patient Home Address [address] [address] Care Team Providers Care Tax Manager Name Role Phone ALEC CULVER Primary Care Provider ALEC CULVER Referring Provider [phone] Assessment No assessment recorded. Plan of Treatment Reminders Order Date Submit Date Provider Last Modified By Organization Details Last Modified Time Details Appointments None recorded. Lab drug screen, urine 2020 dmousad Main Office, [address] [place] [address], [phone], 14:21:54 Referral None recorded. Procedures lumbar radiofreque ncy lesioning (PROC) [address] [facility], [address] [place] [address], [address], [address], 05:00:51 medial branch block, lumbar (PROC) [address] [facility], [address] [place] [address], [address], 05:01:04 nerve conduction study/EMG, lower extremity (PROC) [address] [facility], [address] [place] [address], [address], 05:01:52 Surgeries None recorded. Imaging None recorded. Medication Orders hydrocodone 5 mg-acetamin ophen 325 mg tablet 2020 021 [facility], [address] [place] [address], [address], 14:08:44 Lyrica 150 mg capsule 2020 021 [facility], [address] [place] [address], [address], 14:08:46 hydrocodone 5 mg-acetamin ophen 325 mg tablet 2020 021 [facility], [address] [place] [address], [address], 13:37:34 Lyrica 100 mg capsule 2020 [facility], [address] [place] [address], [address], 15:03:07 hydrocodone 5 mg-acetamin ophen 325 mg tablet 2020 [facility]21 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 goal of Weight 135 lbs Not available Not available Not available 12/27/2020 [id number] decrease pain increase activities improve quality of life weight reduction dmousad Not available 12/29/2020 12:00:37 01/03/2021 [id number] [facility] goal of Pain Scale Not available Not available Not available [facility] goal of Weight 135 lbs Not available Not available Not available 01/03/2021 [id number] decrease pain increase activities improve quality of life weight reduction dmousad Not available 01/03/2021 15:12:57 01/31/2021 [id number] [facility] goal of Pain Scale Not available Not available Not available [facility] goal of Weight 135 lbs Not available Not available Not available 01/31/2021 [id number] decrease pain increase activities improve quality of life weight reduction dmousad Not available 01/31/2021 14:16:38 Patient Instructions Encounter Date Encounter Id Patient Instructions Last Modified By Organization Details Last Modified Time 12/27/2020 [id number] Given dmousad Not available 12/29 12:00:44 Given dmousad Not available 2020 12:00:48 01/03/2021 [id number] Given dmousad Not available 01/03 15:13:05 given dmousad Not available 2020 15:13:14 01/31/2021 [id number] Given dmousad Not available 01/31 14:16:47 Given dmousad Not available 2020 14:16:57 Reason for Referral None Reported. Results Created Date Observation Date Name Description Value Unit Range Abnormal Flag Note LastModifiedBy Organization Detail LastModifiedTime 12/28/1912/27/2020 drug scree n, urine Amphetamines : negati ve Not Available Main Office [address] [address], [place], [address], 12/27/2020 13:54:32 12/28/19 21 12/27/2020 drug scree n, urine Cannabinoids :THC positi ve Not Available Main Office [address] [address], [place], [address], 12/27/2020 13:54:32 12/28/19 21 12/27/2020 drug scree n, urine Cocaine: negati ve Not Available Main Office [address] [address], [place], [address], 12/27/2020 13:54:32 12/28/19 21 12/27/2020 drug scree n, urine Methadone: negati ve Not Available Main Office [address] [address], [place], [address], 12/27/2020 13:54:32 03/15/12/27/2020 drug scree n, urine Opiates: negati ve Not Available Main Office [address] [place] [address], [place], [address], 12/27/2020 13:54:32 12/28/19 21 12/27/2020 drug scree n, urine Oxycodone: negati ve Not Available Main Office [address] [place] [address], [place], [address], 12/27/2020 13:54:32 12/28/19 21 12/27/2020 drug scree n, urine Phenocyclidi ne: negati ve Not Available Main Office [address] [place] [address], [place], [address], 12/27/2020 13:54:32 12/28/19 21 12/27/2020 drug scree n, urine Barbiturates : negati ve Not Available Main Office [address] [place] [address], [place], [address], 12/27/2020 13:54:32 12/28/19 21 12/27/2020 drug scree n, urine Benzodiazepi lennox: positi ve Not Available Main Office [address] [place] [address], [place], [address], 12/27/2020 13:54:32 12/28/19 21 12/27/2020 drug scree n, urine Buprenorphin e negati ve Not Available Main Office [address] [place] [address], [place], [address], 12/27/2020 13:54:32 12/28/19 21 12/27/2020 drug scree n, urine Methamphetam ine negati ve Not Available Main Office [address] [place] [address], [place], [address], 12/27/2020 13:54:32 12/28/19 21 12/27/2020 drug scree n, urine MDMA negati ve Not Available Main Office [address] [facility] [address], [place], [address], 12/27/2020 13:54:32 12/28/19 21 12/27/2020 drug scree n, urine benzodiaz ur CMP 110 NG/mL >=50 PRESE NT: A presc ripti on drug, not indic ated as presc ribed on the requi sitio n form, was detec nika. Not Available [facility] [address] [place] [address], [place], [address], 12/29/2020 17:24:19 12/28/19 21 12/27/2020 drug scree n, urine biodetect EXPECT ED Test resul t is consi stent with delmis dillon flavio zed human urine . Not Available [facility] [address] [place] [address], [place], [address], 12/29/2020 17:24:19 12/28/19 21 12/27/2020 drug scree n, urine pH ur 6.53 4.5 - 9.0 KENDY L Creat inine and pH are perfo rmed for speci men valid ity and not diagn ostic purpo ses. Not Available [facility] [address] [place] [address], [place], [address], 12/29/2020 17:24:19 12/28/19 21 12/27/2020 drug scree n, urine creat ur-mcnc 56.6 mg/dL 20 - 370 KENDY L Creat inine and pH are perfo rmed for speci men valid ity and not diagn ostic purpo ses. Not Available [facility] [address] [facility], [place], [address], 12/29/2020 17:24:19 12/28/19 21 12/27/2020 drug scree n, urine alcohol metabolites ur ql cfm <200 NG/mL >=200 NONE DETEC NIKA Not Available [facility] [address] [place] [address], [place], [address], 12/29/2020 17:24:19 12/28/19 21 12/27/2020 drug scree n, urine benzodiaz ur ql cfm >=50 NG/mL >=50 POSIT CONNOR Not Available [facility] [address] [place] [address], [place], [address], 12/29/2020 17:24:19 12/28/19 21 12/27/2020 drug scree n, urine opiates ur ql cfm <100 NG/mL >=100 NONE DETEC NIKA Not Available [facility] [address] [place] [address], [place], [address], 12/29/2020 17:24:19 12/28/19 21 12/28/2020 drug scree n, urine ethyl glucuronide ur cfm-mcnc <500 NG/mL >=500 NONE DETEC NIKA Not Available [facility] [address] [place] [address], [place], [address], 12/29/2020 17:24:19 12/28/19 21 12/28/2020 drug scree n, urine ethyl sulfate ur cfm-mcnc <200 NG/mL >=200 NONE DETEC NIKA Not Available [facility] [address] [place] [address], [place], [address], 12/29/2020 17:24:19 12/28/19 21 12/29/2020 drug scree n, urine oxazepam ur cfm-mcnc 52 NG/mL >=50 POSIT CONNOR Not Available [facility] [address] [place] [address], [place], [address], 12/29/2020 17:24:19 12/28/19 21 12/29/2020 drug scree n, urine temazepam ur cfm-mcnc 57 NG/mL >=50 POSIT CONNOR Not Available [facility] [address] [place] [address], [place], [address], 12/29/2020 17:24:19 12/30/19 21 12/24/2020 MRI, lumba r spine , w/o contr ast No observ ation record ed. [email or web address] Not Available 2022 09:14:03 Result Notes None recorded. Problems Name Problem SNOMED Code Status Onset Date Resolution Date Notes Provider Name and Address Organization Details Recorded Time Chronic pain syndrome 455258473 Active 2020 [facility], [facility] 10:38:58 Constipation 52144616 Active 2020 [facility] [place] [facility] 10:39:04 Low back pain 155981344 Active 2020 Chuck jones [place] [facility] [place] [facility], [facility] 10:39:19 Migraine 43724285 Active 2020 Chuck jones [facility], [facility] 10:39:26 Solitary sacroiliitis 927376188 Active 2020 Chuck jones [facility], [facility] 10:39:53 Spondylosis 4542577 Active 2020 Chuck jones [facility], [facility] 10:40:04 Problem Notes None recorded. Procedures Surgical History Date Name Laterality Status Provider Name and Address Organization Details Recorded Time Lumbar Facet MBB with 2% Lidocaine under fluroscopy completed Grant Root MD [address] [place] [address],[address], [place], [address], [facility], [facility] 01/22/2021 15:35:29 procedure on Bartholin's gland completed Yuli Diamond [facility], [facility] 12/27/2020 13:46:09 Imaging Results None recorded. Procedure Notes None recorded. Medical Equipment None Reported. Allergies No known drug allergies Medications Name Sig Start Date Stop Date Status Note LastModified by Organization Details LastModified Time cyclobenzap rine 10 mg tablet TAKE 1 TABLET BY MOUTH DAILY UP TO 4 TIMES WEEKLY active Not Available Not Available No t Available fluconazole 100 mg tablet active Not Available Not Available Not Available clonidine HCl 0.1 mg tablet 12/18 completed Not Available Not Available Not Available Carafate 1 gram tablet Take 1 tablet 4 times a day by oral route. active Not Available Not Available No t Available hydrocodone 5 mg-acetamin ophen 325 mg tablet Take 1 tablet 4 times a day by oral route as directed for 28 days. active Not Available Not Available No t Available senna 8.6 mg tablet TAKE 2 TABLETS BY MOUTH EVERY NIGHT AT BEDTIME active Not Available Not Available No t Available ondansetron HCl 8 mg tablet TAKE 1 TABLET BY MOUTH EVERY 8 HOURS NEEDED FOR NAUSEA/VO MITING NO FURTHER REFILLS FROM PCP active Not Available Not Available No t Available ondansetron HCl 4 mg tablet active Not Available Not Available Not Available clonidine HCl 0.3 mg tablet 12/18 completed Not Available Not Available Not Available Excedrin Migraine 250 mg-250 mg-65 mg tablet Take by oral route. active Not Available Not Available No t Available sumatriptan 50 mg tablet TAKE 1 TABLET BY MOUTH 1 TIME NEEDED FOR MIGRAINE HEADACHE active Not Available Not Available No t Available omeprazole 40 mg capsule,del ayed release TAKE 1 CAPSULE BY MOUTH TWICE DAILY active Not Available Not Available No t Available ondansetron 8 mg disintegrat ing tablet active Not Available Not Available N ot Available nortriptyli ne 25 mg capsule TAKE 1 CAPSULE BY MOUTH AT BEDTIME active Not Available Not Available No t Available alprazolam 0.5 mg tablet TAKE DIRECTED. SEE ATTACHED PAPER 12/27 completed Not Available Not Available Not Available magnesium oxide 400 mg (241.3 mg magnesium) tablet TAKE 1 TABLET BY MOUTH DAILY active Not Available Not Available No t Available DOK 100 mg capsule TAKE ONE CAPSULE BY MOUTH TWICE DAILY active Not Available Not Available No t Available hyoscyamine 0.125 mg disintegrat ing tablet DISSOLVE 1 TABLET ON THE TONGUE TWICE DAILY FOR DYSPEPSIA active Not Available Not Available No t Available gabapentin 300 mg capsule TAKE 1 CAPSULE BY MOUTH FOUR TIMES DAILY active Not Available Not Available No t Available hydroxyzine HCl 25 mg tablet 12/18 completed Not Available Not Available Not Available bisacodyl 5 mg tablet,kristen yed release TAKE 2 TABLETS BY MOUTH EVERY NIGHT AT BEDTIME active Not Available Not Available No t Available polyethylen e glycol 3350 17 gram/dose oral powder MIX 17 GRAMS IN WATER AND DRINK EVERY DAY NEEDED FOR CONSTIPAT ION active Not Available Not Available No t Available oxycodone-a cetaminophe n 7.5 mg-325 mg tablet TK 1 T PO Q 6 H 12/18 completed Not Available Not Available Not Available diazepam 5 mg tablet TAKE 1 TABLET BY MOUTH NEEDED 30 MINS BEFORE MRI 12/27 completed Not Available Not Available Not Available modafinil 100 mg tablet active Not Available Not Available Not Available clindamycin 1 % lotion APPLY THIN FILM TWICE DAILY TO AFFECTED AREA AFTER WASHING active Not Available Not Available No t Available levonorgest rel 0.15 mg-ethinyl estradiol 30 mcg tablets,3 mos pack(91) TK 1 T PO ONCE A DAY 12/18 completed Not Available Not Available Not Available pregabalin 100 mg capsule Take 1 capsule twice a day by oral route as directed for 28 days. active Not Available Not Available No t Available pregabalin 150 mg capsule Take 1 capsule twice a day by oral route as directed for 28 days. active Not Available Not Available No t Available Butrans 20 mcg/hour transdermal patch 12/18 completed Not Available Not Available Not Available Butrans 15 mcg/hour transdermal patch 12/18 completed Not Available Not Available Not Available Joint Support Complex active Not Available Not Available Not Available riboflavin (vitamin B2) 400 mg tablet TAKE 1 TABLET BY MOUTH DAILY active Not Available Not Available No t Available cannabidiol (CBD) oral oil Take by oral route. active Not Available Not Available No t Available Vitals Date Recorded Body weight Body mass index (BMI) Body height Oxygen saturation Oxygen saturation in Arterial blood by Pulse oximetry Heart rate Systolic And Diastolic Provider Name and Address Organization Details Last Updated DateTime 1 83826.2 2 g 28.2 kg/m2 157.48 cm 97 % 97 % 87 /min 128/66 mm[Hg] Yuli Diamond [facility], [facility] 13:34:56 Date Recorded Body temperature Provider Name a nd Address Organization Details Last Updated DateTime 12/27/2020 97.5 [degF] Chuck Lainez [facility], [facility] 12/27/2020 13:13:41 Date Recorded Body height Body temperature Body mass index (BMI) Body weight Heart rate Respiratory rate Heart rate Oxygen saturation Oxygen saturation in Arterial blood by Pulse oximetry Systolic And Diastolic Provider Name and Address Organization Details Last Updated DateTime 157.48 cm 97.3 [degF] 28.3 kg/m2 49658.8 2 g 73 /min 18 /min 72 /min 98 % 98 % 110/68 mm[Hg] Chuck garcia [facility], [facility] 13:01:14 Date Recorded Body height Body temperature Provider N calixto and Address Organization Details Last Updated DateTime 01/22/2021 157.48 cm 96.8 [degF] Nadeen Benitez [facility], [facility] 01/22/2021 14:08:06 Date Recorded Body height Body temperature Provider N calixto and Address Organization Details Last Updated DateTime 01/26/2021 157.48 cm 97.4 [degF] kacey castrosuzannemila [facility], [facility] 01/26/2021 13:43:15 Date Recorded Body height Body temperature Provider N calixto and Address Organization Details Last Updated DateTime 01/31/2021 157.48 cm 97.5 [degF] Chuck Lainez [facility], [facility] 01/31/2021 13:39:32 Social History Question Answer Notes LastModified by Organizat ion Details LastModified Time Tobacco Smoking Status Former Smoker Chuck Lainez [facility], [facility] 12/18/2020 10:45:44 Do You Have An Advance Directive? No Information n ot available 12/27/2020 Are You Blind Or Do You Have Difficulty Seeing? No Information n ot available 12/27/2020 What Is Your Level Of Caffeine Consumption? Moderate Information not available 12/27/2020 In The 14 Days Before Symptom Onset, Have You Had Close Contact With A Laboratory-confirm ed COVID-19 While That Case Was Ill? No Information n ot available 12/27/2020 In The 14 Days Before Symptom Onset, Have You Had Close Contact With A Person Who Is Under Investigation For COVID-19 While That Person Was Ill? No Information not available 12/27/2020 Have You Been To An Area Known To Be High Risk For COVID-19? No Information not available 12/27/2020 Are You Deaf Or Do You Have Serious Difficulty Hearing? No Information not available 12/27/2020 What Type Of Diet Are You Following? REGULAR Information n ot available 12/27/2020 Which Illicit Or Recreational Drugs Have You Used? Kratom? Information not available 12/27/2020 What Is The Highest Grade Or Level Of School You Have Completed Or The Highest Degree You Have Received? [id number] Information not available 12/27/2020 How Many Days Of Moderate To Strenuous Exercise, Like A Brisk Walk, Did You Do In The Last 7 Days? 2 Information not available 12/27/2020 Which Of Your Hands Is Dominant? Right Information n ot available 12/27/2020 What Is Your Relationship Status? Information not available 12/27/2020 What Types Of Sporting Activities Do You Participate In? Yoga, Physical Therapy Exercises Information not available 12/27/2020 How Many Years Have You Smoked Tobacco? 17 Information not available 12/27/2020 Do You Have Difficulty Walking Or Climbing Stairs? Yes Information not available 12/27/2020 Sex: Unknown Functional Status Question Answer Note LastModified by Organizat ion Details LastModified Time Do you use any illicit or recreational drugs? Yes Information not available 12/27/2020 Do you or have you ever used any other forms of tobacco or nicotine? Yes Information not available 12/27/2020 What is your level of alcohol consumption? None Information not available 12/27/2020 Do you or have you ever used smokeless tobacco? Never used smokeless tobacco Information not available 12/27/2020 Are you currently employed? No Information not available 12/27/2020 Are you able to walk independently without assistance or assistive devices? YESWOREST Information not available 12/27/2020 Do you have difficulty doing errands alone? Yes Information not available 12/27/2020 Do you have difficulty dressing, bathing, grooming, or toileting? Yes showering Information not available 12/27/2020 Do you or have you ever used e-cigarettes or vape? Current user of electronic cigarettes Information not available 12/27/2020 What is your exercise level? Occasional Information not available 12/27/2020 Mental Status Question Answer Note LastModified by Organizat ion Details LastModified Time Do you feel stressed (tense, restless, nervous, or anxious, or unable to sleep at night)? [id number] Information not available 12/27/2020 Do you have difficulty concentrating, remembering or making decisions? Yes concentration Information not available 12/27/2020 Family History Relationship Description Onset Age of this Age Resolved Age Notes LastModified by Organization Details LastModified Time Maternal Grandmother Asthma [email or web address] Not available 12/18/2020 10:44:00 Son Congenital stenosis of pulmonary valve jhurle Not available 2020 13:39:08 Mother Aortic aneurysm jhurle Not available 2020 13:39:27 Maternal Grandfather Malignant neoplastic disease lung cancer jhurle Not available 12/27/2020 13:40:03 Medical History Condition Response Coronary Artery Disease N Gout N Hernia N Head Trauma/Injury N Depression N COPD N Anxiety Disorder N Arthritis Y Acid Reflux (GERD) Y Cancer N Stroke N Back Injury N High Cholesterol Y Liver Disease N Headaches Y Fibromyalgia N Kidney Disease N Thyroid Problems N Anemia Y Ulcers N Heart Attack ([place]) N Diabetes N Bleeding Disorder N Tuberculosis N AIDS/HIV N Asthma N Substance Abuse N Hepatitis N Heart Disease N Hypertension Y Osteoporosis N Gynecological HistoryNo gynecological history recorded. Obstetrics History GPAL:G 0 P 0 0 0 0 Past Encounters Encounter ID Performer Location Encounter Start Date Encounter Closed Date Diagnosis/Indication Diagnosis SNOMED-CT Code Diagnosis ICD10 Code Diagnosis IMO Codes Diagnosis Note [id number] Grant Root MD Main Office [address] [facility] [place] [address] 12/27/2020 12:56:15 12/29/2020 12:02:22 Long-term current use of opiate analgesic drug 4441513015 60413 Z79.891 Chronic low back pain 27 2652662 M54.5 Do not drink alcohol while taking norco. Lumbar radiculopathy 128 324259 M54.16 HEP P.T add gabapentin next visit. Lumbosacra l spondylosis without myelopathy 74514476 M47.817 Plan for right RFR after we get the result of MRI. Continue P.T [id number] Grant Root MD Main Office [address] [place] [address] 01/03/2021 12:55:31 01/03/2021 15:14:19 Lumbar radiculopathy 525654271 M54.16 HEP P.T add gabapentin next visit. Chronic low back pain 27 4287112 M54.5 Do not drink alcohol while taking norco. Fibromyalgia 207561736 M 79.7 Lumbosacra l spondylosis without myelopathy 47958933 M47.817 Rt L4,5 and L5-S1 FMBB with 2 % lidocaine as a dxic test to confirm the dx of right lumbar facet sx Continue P.T [id number] Grant oRot MD Main Office [address] [place] [address] 01/22/2021 14:07:25 01/22/2021 15:37:21 Lumbosacral spondylosis without myelopathy 43070448 M47.817 Rt L4,5 and L5-S1 FMBB with 2 % lidocaine as a dxic test to confirm the dx of right lumbar facet sx Continue P.T [id number] Grant Root MD Main Office [address] [place] [address] 01/26/2021 13:41:10 01/26/2021 14:55:24 Lumbar radiculopathy 265557217 M54.16 HEP NCS/EMG LEs. [id number] Grant Root MD Main Office [address] [place] [phone] 01/31/2021 13:38:36 01/31/2021 14:18:04 Lumbar radiculopathy 064817587 M54.16 HEP P.T add gabapentin next visit. Chronic low back pain 27 4282601 M54.5 Do not drink alcohol while taking norco. Spasm of back muscles 20 6651614 M62.830 Fibromyalgia 615800090 M 79.7 lyrica titrated up t 150 mg bid. Lumbosacra l spondylosis without myelopathy 43090362 M47.817 Rt L4,5 and L5-S1 RFR. Health Concerns Section Related Observation LastModified by Organization Detai ls LastModified Time None Recorded Concern Status LastModified by Organization Details LastModified Time None Recorded Advance Directives Directive N: Payers Insurance Date Sequence Insurance Name Policy Number Policy León Covered Member ID León Member ID Guarantor Name 02/09/2021 1 [facility] (POS) [id number] Alexia P Remes [id number] Alexia Remes 01/03/2021 1 [facility] (PPO) [id number] Alexia P Remes [id number] Alexia Remes Notes Date Note Type Note Provider Name and Address Organization Details Recorded Time 1 text/html 35 years old female with h/o LBP for years, h/o migraine GREEN, s/p Rt lumbar FMBB and lumbar facet joint block, s/p right SIJI and S1, 2, 3 lateral brach block. She presented today with severe LBP, deep aching, constant, rated as 8/10 VS, radiated to the right LE down to the foot with paresthesia. She stated that she had MRI of L-spine 3 days ago, report not with her today. Screening UT done today was +ve fot THC and benzo., she took alprazolam 0.5 mg 1 tab before the MRI. Grant Root MD [address] [place] [address],[address], [place], [address], [facility], [facility] 12/29/2020 12:02:00 1 text/html FibromyalgiaReported by PatientHPIFor severity, patient reportspain level 7/10. For pain in joints or muscles, patient reportspain of joints or muscles. For aggravating factors, patient reportsemotional stress. For associated symptoms, patient reportsfatigue,irritable bowel syndrome (ibs),sleep disorders,chronic headaches,morning stiffness,muscle spasms,pain with menstruation,numbness/tin gling in the extremities, andlightheadedness. For frequency, patient reportsconstant. For timing, patient reportsno change during the day. For location, patient reportsdiffuse. For alleviating factors, patient reportsrest. 35 years old female with h/o LBP for years, h/o migraine GREEN, s/p Rt lumbar FMBB and lumbar facet joint block, s/p right SIJI and S1, 2, 3 lateral brach block. She presented today with severe LBP, deep aching, constant, rated as 6-8/10 VS, radiated to the right LE down to the foot with paresthesia. She also c/o generalized body pain, deep aching, burning, associates with paresthesia of both hands and feet. She also has fatigue, insomnia, IBS, GREEN, depressed mood. She tried norco 5/325 mg tid, she sated she had only mild relief of painand not covered the whole day maureen especially the night episode. Grant Root MD [address] [place] [address],[address], [place], [id number], [facility], [facility] 01/03/2021 15:14:01 1 text/html FibromyalgiaReported by PatientHPIFor severity, patient reportspain level 7/10. For pain in joints or muscles, patient reportspain of joints or muscles. For aggravating factors, patient reportsemotional stress. For associated symptoms, patient reportsfatigue,irritable bowel syndrome (ibs),sleep disorders,chronic headaches,morning stiffness,muscle spasms,pain with menstruation,numbness/tin gling in the extremities, andlightheadedness. For frequency, patient reportsconstant. For timing, patient reportsno change during the day. For location, patient reportsdiffuse. For alleviating factors, patient reportsrest. 35 years old female with h/o LBP for years, h/o migraine GREEN, s/p Rt lumbar FMBB and lumbar facet joint block, s/p right SIJI and S1, 2, 3 lateral brach block. She presented today with severe LBP, deep aching, constant, rated as 3-8/10 VS, radiated to the right LE down to the foot with paresthesia. She also c/o generalized body pain, deep aching, burning, associates with paresthesia of both hands and feet. She also has fatigue, insomnia, IBS, GREEN, depressed mood. She tried norco 5/325 mg qid with help for the whole day. RT L4,5 and L5-S1 FMBB with 2 % lidocaine done in 01/22 with 100 % relief of pain for one day. Grant Root MD [address] [place] [address],[address], [place], [id number], [facility], [facility] 01/31/2021 14:17:47 OBGyn Episode No OBEpisode recorded.
== END 2025-08-21 12:36 | disposition home or self-care (01) ==
LOC: HO.HSMS 11:08
PROVIDERS: PCP Internal Medicine; Visit Provider Nurse Practitioner Family
DX: G47.419 Narcolepsy without cataplexy (principal); G47.10 Hypersomnia, unspecified; G47.61 Periodic limb movement disorder; H20.029 Recurrent acute iridocyclitis, unspecified eye; R53.83 Other fatigue
CPT/HCPCS: 99214

== ENCOUNTER → 2025-08-21 11:08 | Outpatient (BNVA) | payer OTHER, SELFPAY | PROVIDERS: PCP Internal Medicine; Visit Provider Nurse Practitioner Family | DX: G47.419 Narcolepsy without cataplexy (principal); G47.10 Hypersomnia, unspecified; G47.61 Periodic limb movement disorder; R53.83 Other fatigue; Z87.891 Personal history of nicotine dependence; Z86.69 Personal history of other diseases of the nervous system and sense organs; Z79.899 Other long term (current) drug therapy | CPT/HCPCS: 99212 ==